=== PATIENT | male | born 1930 | race Hispanic/Latino ===

== ENCOUNTER 2017-02-28 12:01 | Inpatient (IN) | payer MEDICARE, OTHER ==
--- NOTE | 2017-02-28 12:37 | ED PDOC ---
Arrival/HPI - General Chief Complaint: Abdominal Pain Time Seen by Provider: 02/28/17 12:13 Historian: Patient - History of Present Illness Narrative History of Present Illness (Text): 02/28/17 12:33 A 87 year old male presents to the emergency department complaining of a left side inguinal hernia. Patient reports intermittent pain for the past few days radiating to abdomen. Patient notes non-bloody diarrhea but denies any fever, chills, nausea, vomiting, chest pain, shortness of breath or any other complaints. Patient has a scheduled surgery with Jericho Arguello at the end of this month. Time/Duration: < week (few days) Symptom Course: Unchanged, Intermittent Quality: Other Context: Home Past Medical History - Provider Review Nursing Documentation Reviewed: Yes - Past History Past History: Non-Contributing - Infectious Disease Hx of Infectious Diseases: None - Tetanus Immunization Tetanus Immunization: Unknown - Cardiac Hx Hypertension: Yes - Endocrine/Metabolic Hx Hyperthyroidism: Yes - Gastrointestinal Hx Gastroesophageal Reflux: Yes - Genitourinary/Gynecological Hx Prostate Problems: Yes (Enlarged.) - Psychiatric Hx Depression: Yes Hx Emotional Abuse: No Hx Physical Abuse: No Hx Substance Use: No - Surgical History Hx Orthopedic Surgery: Yes (LEFT ANKLE) - Suicidal Assessment Feels Threatened In Home Enviroment: No Family/Social History - Physician Review Nursing Documentation Reviewed: Yes Family/Social History: No Known Family HX Smoking Status: Never Smoked Hx Alcohol Use: No Hx Substance Use: No Allergies/Home Meds Allergies/Adverse Reactions: Allergies No Known Allergies Allergy (Verified 02/28/17 12:14) Home Medications: Home Meds Medication Instructions Recorded Confirmed Unobtainable 02/28/17 02/28/17 Review of Systems - Physician Review All systems were reviewed & negative as marked: Yes - Review of Systems Constitutional: absent: Fevers, Night Sweats Respiratory: absent: SOB Cardiovascular: absent: Chest Pain Gastrointestinal: Abdominal Pain, Diarrhea, Other (inguinal hernia). absent: Nausea, Vomiting Physical Exam Vital Signs Reviewed: Yes Vital Signs Temp Pulse Resp BP Pulse Ox 02/28/17 15:14 97.9 F 84 18 140/80 96 02/28/17 12:11 97.4 F L 74 18 125/84 97 02/28/17 12:02 97.4 F L 74 18 125/84 97 Temperature: Afebrile Blood Pressure: Normal Pulse: Regular Respiratory Rate: Normal Appearance: Positive for: Well-Appearing, Non-Toxic, Comfortable Pain Distress: None Mental Status: Positive for: Alert and Oriented X 3 - Systems Exam Head: Present: Atraumatic, Normocephalic Pupils: Present: PERRL Extroacular Muscles: Present: EOMI Conjunctiva: Present: Normal Mouth: Present: Moist Mucous Membranes Neck: Present: Normal Range of Motion Respiratory/Chest: Present: Clear to Auscultation, Good Air Exchange. No: Respiratory Distress, Accessory Muscle Use Cardiovascular: Present: Regular Rate and Rhythm, Normal S1, S2. No: Murmurs Abdomen: Present: Normal Bowel Sounds, Hernias (Large inguinal hernia, reducible ). No: Tenderness, Distention, Peritoneal Signs Back: Present: Normal Inspection Upper Extremity: Present: Normal Inspection. No: Cyanosis, Edema Lower Extremity: Present: Normal Inspection. No: Edema Neurological: Present: GCS=15, CN II-XII Intact, Speech Normal Skin: Present: Warm, Dry, Normal Color. No: Rashes Psychiatric: Present: Alert, Oriented x 3, Normal Insight, Normal Concentration Medical Decision Making ED Course and Treatment: 02/28/17 12:33 Impression: A 87 year old male with inguinal hernia. Patient notes pain radiating to abdomen and non-bloody diarrhea Plan: -- EKG -- Labs -- Urine culture and Urinalysis -- Reassess and disposition Progress Notes: EKG shows sinus tachycardia at 106 BPM with normal axis, 1st degree AV block, PAC's. Interpreted by me. 02/28/17 12:47 Case discussed with vice president of finance. 02/28/17 15:[address] Schmid, states patient has an incarcerated obstructed inguinal hernia. Report Date : 02/28/2017 15:28:57 PROCEDURE: CT Abdomen and Pelvis without intravenous contrast Dictator : Piyush Faulkner MD IMPRESSION: Left inguinal hernia containing a loop of sigmoid colon with associated obstruction. No evidence of perforation Report Date : 02/28/2017 15:32:45 PROCEDURE: CHEST RADIOGRAPH, 1 VIEW Dictator : Piyush Faulkner MD IMPRESSION: No active disease. - Lab Interpretations Lab Results: 02/28/17 12:48 02/28/17 12:48 Lab Results 02/28/17 12:48: Blood Type A POSITIVE, Antibody Screen Negative, BBK History Checked No verified bt 02/28/17 12:48: Sodium 138, Potassium 2.9 L*, Chloride 98, Carbon Dioxide 27, Anion Gap 16, BUN 37 H, Creatinine 1.8 H, Est GFR ( Amer) 43, Est GFR ( Non-Af Amer) 36, Random Glucose 122 H, Calcium 10.0, Total Bilirubin 1.1, AST 28 , ALT 30, Alkaline Phosphatase 62, Total Protein 7.5, Albumin 4.0, Globulin 3.4 , Albumin/Globulin Ratio 1.2, Lipase 186 02/28/17 12:48: PT 11.2, INR 1.04, APTT 24.5 02/28/17 12:48: WBC 11.4 H, RBC 4.66, Hgb 14.2, Hct 40.2 L, MCV 86.3, MCH 30.5, MCHC 35.3, RDW 12.7, Plt Count 171, MPV 10.9, Gran % 78.2 H, Lymph % (Auto) 9.9 L, Reeves % (Auto) 11.6 H, Eos % (Auto) 0.2 L, Baso % (Auto) 0.1, Gran # 8.89 H, Lymph # 1.1 L, Reeves # 1.3 H, Eos # 0.0, Baso # 0.01 I have reviewed the lab results: Yes - RAD Interpretation Radiology Orders: 02/28/17 13:17 ABDOMEN & PELVIS [ABD & PELVIS PO CONTRAST ONLY] [CT] Stat - Medication Orders Current Medication Orders: Lactated Ringer's (Lactated Ringer's) 1,000 mls @ 125 mls/hr IV .Q8H [facility] Last Admin: 02/28/17 16:30 Dose: 125 mls/hr Metoprolol Tartrate (Lopressor) 50 mg PO BID [facility] Last Admin: 02/28/17 19:25 Dose: 50 mg Discontinued Medications Amlodipine Besylate (Norvasc) 5 mg PO DAILY [facility] Potassium Chloride (Potassium Chloride 10 Meq/100 Ml) 10 meq in 100 mls @ 100 mls/hr IVPB Q2H [facility] Stop: 02/28/17 16:14 Last Admin: 02/28/17 14:38 Dose: 100 mls/hr Sodium Chloride (Sodium Chloride 0.9%) 1,000 mls @ 999 mls/hr IV .Q1H1M STA Stop: 02/28/17 14:17 Last Admin: 02/28/17 14:45 Dose: 999 mls/hr Sodium Chloride (Sodium Chloride 0.9%) 1,000 mls @ 999 mls/hr IV .Q1H1M [facility] Stop: 02/28/17 15:30 Last Admin: 02/28/17 14:45 Dose: 999 mls/hr Iohexol (Omnipaque 240 (50 Ml)) Confirm Administered Dose 50 ml .ROUTE .STK-MED ONE Stop: 02/28/17 13:24 Pneumococcal Polyvalent Vaccine (Pneumovax 23 Vaccine) 0.5 ml IM .ONCE ONE Stop: 02/28/17 19:33 Potassium Chloride (Potassium Chloride Oral Soln) 40 meq PO STAT STA Stop: 02/28/17 13:05 Last Admin: 02/28/17 13:32 Dose: 40 meq - Scribe Statement The provider has reviewed the documentation as recorded by the Roxanaibj carlos Hernandez Provider Scribe Attestation: All medical record entries made by the Roxanaibj carlos were at my direction and personally dictated by me. I have reviewed the chart and agree that the record accurately reflects my personal performance of the history, physical exam, medical decision making, and the department course for this patient. I have also personally directed, reviewed, and agree with the discharge instructions and disposition. Disposition/Present on Arrival - Present on Arrival Any Indicators Present on Arrival: No History of DVT/PE: No History of Uncontrolled Diabetes: No Urinary Catheter: No History of Decub. Ulcer: No History Surgical Site Infection Following: None - Disposition Have Diagnosis and Disposition been Completed?: Yes Diagnosis: Inguinal hernia of left side with obstruction Disposition: HOSPITALIZED Disposition Time: 13:15 Condition: STABLE
[2017-02-28 12:57] LABS: BASO # 0.01 K/mm3 (0.0-2.0); BASO % 0.1 % (0.0-3.0); EOS % 0.2 % (1.5-5.0); GRAN # 8.89 (1.4-6.5); GRAN % 78.2 % (50.0-68.0); HEMOGLOBIN 14.2 gm/dL (14.0-18.0); LYMPH # 1.1 (1.2-3.4); LYMPH % 9.9 % (22.0-35.0); MEAN CELL VOLUME 86.3 fL (80.0-105.0); MEAN CORPUSCULAR HEMOGLOBIN 30.5 pg (25.0-35.0); MEAN CORPUSCULAR HGB CONC 35.3 g/dl (31.0-37.0); MEAN PLATELET VOLUME 10.9 fl (7.0-11.0); MONO # 1.3 (0.1-0.6); MONO % 11.6 % (1.0-6.0); PLATELET COUNT 171 10^3/uL (120.0-450.0); RBC 4.66 10^6/uL (3.5-6.1); RED CELL DISTRIBUTION WIDTH 12.7 % (11.5-14.5); WHITE BLOOD COUNT 11.4 10^3/ul (4.5-11.0)
[2017-02-28 13:01] LABS: ALB/GLOB RATIO 1.2 (1.1-1.8)
[2017-02-28 13:04] LABS: INR 1.04 (0.93-1.08); PARTIAL THROMBOPLASTIN TIME 24.5 Seconds (23.7-30.8); PROTHROMBIN TIME 11.2 Seconds (9.9-11.8)
[2017-02-28] MEDS ORDERED: Potassium Chloride 40 mEq/30 ml LIQ UD PO STA (13:04)
[2017-02-28] MEDS ORDERED: Sodium Chloride 0.9% 1,000 ML IV STA (13:17)
[2017-02-28] MEDS ORDERED: Iohexol 240 (50 ml) ONE (13:23)
--- NOTE | 2017-02-28 13:33 | CP.PCM.HP ---
History of Present Illness - History of Present Illness History of Present Illness: 88M with PMHx of HTN and GERD comes into the ED with left inguinal pain. Pain is sharp radiates toward the abdomen, the worst 8/10 and self resolves. 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 Pt was originally scheduled to have surgery at the end of the month. Diarrhea for 3 days with no appetite. Pt states lost 5lbs over the past week. Denies any current nausea or vomiting. stool has been loose with no blood. Denies fever chills, CP, SOB. 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 Denies current ETOH and tobacco. Use to smoke use quit 29 years ago, smoked 2pk/day x 20 years. former drinker quit 30 years ago. PMHx: HTN GERD PSHx: Left inguinal hernia repair 10years ago. ALL: NKDA Primary care: Dr. Turk Present on Admission - Present on Admission Any Indicators Present on Admission: No Review of Systems - Constitutional Constitutional: As Per HPI - Cardiovascular Cardiovascular: absent: Chest Pain, Chest Pain at Rest, Dyspnea on Exertion - Respiratory Respiratory: absent: Wheezing - Gastrointestinal Gastrointestinal: Loose Stools. absent: Melena, Vomiting Past Patient History - Infectious Disease Hx of Infectious Diseases: None - Tetanus Immunizations Tetanus Immunization: Unknown - Past Medical History & Family History Past Family History: Reviewed and not pertinent - Past Social History Smoking Status: Never Smoked - CARDIAC Hx Hypertension: Yes - ENDOCRINE/METABOLIC Hx Hyperthyroidism: Yes - GASTROINTESTINAL Hx Gastroesophageal Reflux: Yes - GENITOURINARY/GYNECOLOGICAL Hx Prostate Problems: Yes (Enlarged.) - PSYCHIATRIC Hx Depression: Yes Hx Emotional Abuse: No Hx Physical Abuse: No Hx Substance Use: No - SURGICAL HISTORY Hx Orthopedic Surgery: Yes (LEFT ANKLE) Meds Allergies/Adverse Reactions: Allergies Allergy/AdvReac Type Severity Reaction Status Date / Time No Known Allergies Allergy Verified 02/28/17 12:14 Physical Exam - Constitutional Appears: Well, No Acute Distress - Eye Exam Eye Exam: Normal appearance - Respiratory Exam Respiratory Exam: NORMAL BREATHING PATTERN. absent: Accessory Muscle Use, Chest Wall Tenderness - Cardiovascular Exam Cardiovascular Exam: REGULAR RHYTHM, +S1, +S2 - GI/Abdominal Exam GI & Abdominal Exam: Distended, Hernia, Normal Bowel Sounds. absent: Guarding Additional comments: Left inguinal hernia. bowel sounds in hernia. - Exam Exam: NORMAL INSPECTION. absent: Circumcision, Scrotal Swelling External exam: absent: Ecchymosis - Extremities Exam Extremities exam: Positive for: normal inspection Additional comments: bruises left ankle. - Neurological Exam Neurological exam: Alert, Oriented x3 - Psychiatric Exam Psychiatric exam: Normal Affect, Normal Mood - Skin Skin Exam: Normal Color, Warm Results - Vital Signs Recent Vital Signs: Last Vital Signs Temp 97.4 F L 02/28/17 12:11 Pulse 74 02/28/17 12:11 Resp 18 02/28/17 12:11 BP 125/84 02/28/17 12:11 Pulse Ox 97 02/28/17 12:11 - Labs Result Diagrams: 02/28/17 12:48 02/28/17 12:48 Labs: Laboratory Results - last 24 hr 02/28/17 02/28/17 02/28/17 12:48 12:48 12:48 WBC 11.4 H RBC 4.66 Hgb 14.2 Hct 40.2 L MCV 86.3 MCH 30.5 MCHC 35.3 RDW 12.7 Plt Count 171 MPV 10.9 Gran % 78.2 H Lymph % (Auto) 9.9 L Wilkin % (Auto) 11.6 H Eos % (Auto) 0.2 L Baso % (Auto) 0.1 Gran # 8.89 H Lymph # 1.1 L Wilkin # 1.3 H Eos # 0.0 Baso # 0.01 PT 11.2 INR 1.04 APTT 24.5 Sodium 138 Potassium 2.9 L* Chloride 98 Carbon Dioxide 27 Anion Gap 16 BUN 37 H Creatinine 1.8 H Est GFR ( Amer) 43 Est GFR (Non-Af Amer) 36 Random Glucose 122 H Calcium 10.0 Total Bilirubin 1.1 AST 28 ALT 30 Alkaline Phosphatase 62 Total Protein 7.5 Albumin 4.0 Globulin 3.4 Albumin/Globulin Ratio 1.2 Lipase 186 Assessment & Plan - Assessment and Plan (Free Text) Assessment: 88M left inguinal hernia Plan: - await results of CT scan PO contrast - Stool culture - pain control - NPO - IVF - Admit to service Discuss with Dr. Jericho Srivastava PGY1 - Date & Time Date: 02/28/17 Time: 13:30
[2017-02-28] MEDS ORDERED: Sodium Chloride 0.9% 1,000 ML IV SCH (14:30)
--- NOTE | 2017-02-28 14:43 | CP.PCM.CON ---
History of Present Illness - History of Present Illness History of Present Illness: Consult Note- General Surgery 88M w/ PMHx of HTN and GERD comes into the ED with sharp left inguinal pain. Pain radiates towards the abdomen, worst 8/10 and self resolves. 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 Pt was originally scheduled to have surgery at the end of the month. Diarrhea for 5 days with no appetite. Denies blood in stool. Pt states he lost 5lbs over the past week. Denies any current nausea/vomiting, fevers chills, CP, SOB. 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 Denies current ETOH and tobacco. Former smoker quit 29 years ago, smoked 2pk/day x 20 years. 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 Turk Review of Systems - Review of Systems All systems: reviewed and no additional remarkable complaints except - Constitutional Constitutional: As Per HPI, Weight Loss. absent: Fever, Headache - Cardiovascular Cardiovascular: As Per HPI. absent: Chest Pain, Chest Pain at Rest, Radiating Pain - Respiratory Respiratory: absent: Wheezing, Pain on Inspiration - Gastrointestinal Gastrointestinal: Abdominal Pain, Bloating, Change in Bowel Habits, Loose Stools. absent: Fecal Incontinence, Hematemesis, Hematochezia, Melena, Nausea Past Patient History - Infectious Disease Hx of Infectious Diseases: None - Tetanus Immunizations Tetanus Immunization: Unknown - Past Medical History & Family History Past Family History: Reviewed and not pertinent - Past Social History Smoking Status: Never Smoked - CARDIAC Hx Hypertension: Yes - ENDOCRINE/METABOLIC Hx Hyperthyroidism: Yes - GASTROINTESTINAL Hx Gastroesophageal Reflux: Yes - GENITOURINARY/GYNECOLOGICAL Hx Prostate Problems: Yes (Enlarged.) - PSYCHIATRIC Hx Depression: Yes Hx Emotional Abuse: No Hx Physical Abuse: No Hx Substance Use: No - SURGICAL HISTORY Hx Orthopedic Surgery: Yes (LEFT ANKLE) Meds Allergies/Adverse Reactions: Allergies Allergy/AdvReac Type Severity Reaction Status Date / Time No Known Allergies Allergy Verified 02/28/17 12:14 - Medications Medications: Current Medications Potassium Chloride (Potassium Chloride 10 Meq/100 Ml) 10 meq in 100 mls @ 100 mls/hr IVPB Q2H [facility] Stop: 02/28/17 16:14 Last Admin: 02/28/17 13:29 Dose: 100 mls/hr Lactated Ringer's (Lactated Ringer's) 1,000 mls @ 125 mls/hr IV .Q8H [facility] Sodium Chloride (Sodium Chloride 0.9%) 1,000 mls @ 999 mls/hr IV .Q1H1M [facility] Stop: 02/28/17 15:30 Physical Exam - Constitutional Appears: Well, No Acute Distress - Eye Exam Eye Exam: EOMI, Normal appearance - Respiratory Exam Respiratory Exam: Chest Wall Tenderness, NORMAL BREATHING PATTERN. absent: Accessory Muscle Use - Cardiovascular Exam Cardiovascular Exam: REGULAR RHYTHM, +S1, +S2 - GI/Abdominal Exam GI & Abdominal Exam: Distended, Hernia, Normal Bowel Sounds. absent: Bruit, Diminished Bowel Sounds Additional comments: Left inguinal non-reducable hernia. + BS - Exam Exam: NORMAL INSPECTION. absent: Circumcision - Neurological Exam Neurological exam: Alert, Oriented x3 - Psychiatric Exam Psychiatric exam: Normal Mood - Skin Skin Exam: Intact, Normal Color, Warm Results - Vital Signs Recent Vital Signs: Last Vital Signs Temp 97.4 F L 02/28/17 12:11 Pulse 74 02/28/17 12:11 Resp 18 02/28/17 12:11 BP 125/84 02/28/17 12:11 Pulse Ox 97 02/28/17 12:11 - Labs Result Diagrams: 02/28/17 12:48 02/28/17 12:48 Assessment & Plan - Assessment and Plan (Free Text) Assessment: 88M left inguinal hernia Plan: - await results of CT scan w/ PO contrast - f/u stool culture results - pain control - IVF Discussed with Dr. Jericho Srivastava PGY1 - Date & Time Date: 02/28/17 Time: 13:30
--- NOTE | 2017-02-28 14:45 | CP.PCM.CON ---
History of Present Illness - History of Present Illness History of Present Illness: General Surgery - DR. Echavarria 88M with PMHx of HTN and GERD comes into the ED with left inguinal pain. Pain is sharp radiates toward the abdomen, the worst 8/10 and self resolves. 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 Pt was originally scheduled to have surgery at the end of the month for this. Pt has also had Diarrhea for 3 days and no appetite w/ poor PO intake. Pt states he's lost 5lbs over the past week. He denies any current nausea or vomiting, hematochezia, hematuria, fevers /Chills, SOB/Chest pain. 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 Denies current ETOH and tobacco. Use to smoke use quit 29 years ago, smoked 2pk/day x 20 years. former drinker quit 30 years ago. PMHx: HTN GERD PSHx: Left inguinal hernia repair 10years ago. ALL: NKDA Primary care: Dr. Wray Review of Systems - Review of Systems All systems: reviewed and no additional remarkable complaints except (as per HPI ) Past Patient History - Infectious Disease Hx of Infectious Diseases: None - Tetanus Immunizations Tetanus Immunization: Unknown - Past Medical History & Family History Past Family History: Reviewed and not pertinent - Past Social History Smoking Status: Former Smoker - CARDIAC Hx Hypertension: Yes - ENDOCRINE/METABOLIC Hx Hyperthyroidism: Yes - GASTROINTESTINAL Hx Gastroesophageal Reflux: Yes - GENITOURINARY/GYNECOLOGICAL Hx Prostate Problems: Yes (Enlarged.) - PSYCHIATRIC Hx Depression: Yes Hx Emotional Abuse: No Hx Physical Abuse: No Hx Substance Use: No - SURGICAL HISTORY Hx Orthopedic Surgery: Yes (LEFT ANKLE) Meds Allergies/Adverse Reactions: Allergies Allergy/AdvReac Type Severity Reaction Status Date / Time No Known Allergies Allergy Verified 02/28/17 12:14 - Medications Medications: Current Medications Potassium Chloride (Potassium Chloride 10 Meq/100 Ml) 10 meq in 100 mls @ 100 mls/hr IVPB Q2H [facility] Stop: 02/28/17 16:14 Last Admin: 02/28/17 14:38 Dose: 100 mls/hr Lactated Ringer's (Lactated Ringer's) 1,000 mls @ 125 mls/hr IV .Q8H [facility] Sodium Chloride (Sodium Chloride 0.9%) 1,000 mls @ 999 mls/hr IV .Q1H1M [facility] Stop: 02/28/17 15:30 Physical Exam - Constitutional Appears: No Acute Distress - Head Exam Head Exam: ATRAUMATIC, NORMAL INSPECTION, NORMOCEPHALIC - Eye Exam Eye Exam: EOMI, Normal appearance - ENT Exam ENT Exam: Mucous Membranes Dry - Respiratory Exam Respiratory Exam: NORMAL BREATHING PATTERN. absent: Respiratory Distress - Cardiovascular Exam Cardiovascular Exam: REGULAR RHYTHM - GI/Abdominal Exam GI & Abdominal Exam: Distended (mildly), Hernia (Left Inguinal hernia, not- reducible, likely bowel containing; also a small Right Inguinal hernia), Soft, Tenderness (mild ttp to the L inguinal hernia). absent: Firm, Guarding, Rebound , Rigid - Neurological Exam Neurological exam: Alert, Oriented x3 - Psychiatric Exam Psychiatric exam: Normal Affect, Normal Mood - Skin Skin Exam: Dry, Intact Results - Vital Signs Recent Vital Signs: Last Vital Signs Temp 97.4 F L 02/28/17 12:11 Pulse 74 02/28/17 12:11 Resp 18 02/28/17 12:11 BP 125/84 02/28/17 12:11 Pulse Ox 97 02/28/17 12:11 - Labs Result Diagrams: 02/28/17 12:48 02/28/17 12:48 Assessment & Plan - Assessment and Plan (Free Text) Assessment: 87 yo M w/ recurrent Left Inguinal hernia -Admit to medical service, Dr. Wray -F/U CT Abd/pelvis with PO contrast -Stool culture -IVF hydration and K+ repletion -Will F/u Results and plan for poss. hernia repair this admission DW Dr Jericho Thomas PGY3
--- NOTE | 2017-02-28 15:30 | CT ---
PROCEDURE: CT Abdomen and Pelvis without intravenous contrast HISTORY: evaluation of left inguinal hernia COMPARISON: None. TECHNIQUE: Without contrast. Contrast Dose: None Radiation dose: Total exam DLP = 728 mGy-cm. This CT exam was performed using one or more of the following dose reduction techniques: Automated exposure control, adjustment of the mA and/or kV according to patient size, and/or use of iterative reconstruction technique. FINDINGS: LOWER THORAX: Unremarkable. LIVER: Unremarkable. No gross lesion or ductal dilatation. GALLBLADDER AND BILE DUCTS: Unremarkable. PANCREAS: Unremarkable. No gross lesion or ductal dilatation. SPLEEN: Unremarkable. ADRENALS: Unremarkable. No mass. KIDNEYS AND URETERS: Unremarkable. No hydronephrosis. No solid mass. VASCULATURE: Unremarkable. No aortic aneurysm. BOWEL: There is a large left inguinal hernia that contains a loop of the sigmoid colon. There is associated obstruction with dilatation of the proximal colon. The findings are best demonstrated on coronal image 42. There is severe dilatation of the cecum and transverse colon. The cecum measures 8.2 cm in diameter. Fluid levels are also seen. Findings were discussed with Dr. Branch at 3:30 p.m. APPENDIX: Unremarkable. Normal appendix. PERITONEUM: Unremarkable. No free fluid. No free air. LYMPH NODES: Unremarkable. No enlarged lymph nodes. BLADDER: Unremarkable. REPRODUCTIVE: Unremarkable. BONES: No acute fracture. OTHER FINDINGS: None. IMPRESSION: Left inguinal hernia containing a loop of sigmoid colon with associated obstruction. No evidence of perforation
--- NOTE | 2017-02-28 15:34 | RAD ---
PROCEDURE: CHEST RADIOGRAPH, 1 VIEW HISTORY: r/o infiltrate COMPARISON: None available. FINDINGS: LUNGS: Clear. PLEURA: No pneumothorax or pleural fluid seen. CARDIOVASCULAR: Normal. OSSEOUS STRUCTURES: No significant abnormalities. VISUALIZED UPPER ABDOMEN: Normal. OTHER FINDINGS: None. IMPRESSION: No active disease.
[2017-02-28] MEDS: Lactated Ringer's 1,000 ML IV SCH (16:30)
[2017-02-28 19:32] VITALS: BMI 22.4
[2017-02-28] MEDS ORDERED: Pneumococcal 23-Valent Vaccine IM ONE (19:32)
[2017-03-01] MEDS: Lactated Ringer's 1,000 ML IV SCH (01:21)
[2017-03-01 07:21] LABS: BASO # 0.02 K/mm3 (0.0-2.0); BASO % 0.2 % (0.0-3.0); EOS # 0.1 (0.0-0.7); EOS % 1.2 % (1.5-5.0); GRAN # 8.32 (1.4-6.5); GRAN % 72.5 % (50.0-68.0); HEMOGLOBIN 13.1 gm/dL (14.0-18.0); LYMPH % 17.5 % (22.0-35.0); MEAN CELL VOLUME 86.6 fL (80.0-105.0); MEAN CORPUSCULAR HEMOGLOBIN 29.7 pg (25.0-35.0); MEAN CORPUSCULAR HGB CONC 34.3 g/dl (31.0-37.0); MONO % 8.6 % (1.0-6.0); PLATELET COUNT 167 10^3/uL (120.0-450.0); RBC 4.41 10^6/uL (3.5-6.1); RED CELL DISTRIBUTION WIDTH 12.8 % (11.5-14.5); WHITE BLOOD COUNT 11.5 10^3/ul (4.5-11.0)
[2017-03-01] MEDS ORDERED: Potassium Chloride 20 mEq ER Tab PO ONE ×2 (07:30→10:00)
--- NOTE | 2017-03-01 07:53 | CP.PCM.PN ---
Subjective - Date & Time of Evaluation Date of Evaluation: 03/01/17 Time of Evaluation: 07:00 - Subjective Subjective: Consultation Note: (Dictation System not working) 87 y/o male with LIH with several weeks discomfort and increased pain with diarrhea and diminished appetite for several days admitted through the ER yesterday. Also, hypokalemia noted. NO CP, SOB, orthopnea, PND, Syncope,Dizziness, edema. 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 No F,C, C, SP, H, melena, vomiting. PMH: HBP, Abestosis, Pl. Plaques, GERD, Remote Smoker. No SD, CHF, AP, arrhythmia, diabetes, gout strokeor TIA. Meds: pt is unsure. Meds from [facility]. " BP pill" All: NKDA SH: Active. Former Smoker. rare ETOH. FH: non-contributory ROS: 10 point ROS is otherwise unremarkable PE: WD M in NAD. V/S noted. HEENT: No NVD, car. bruit Lungs: clear Cor.: S1S2 Abd.: soft, LIH noted Ext.: no edema Neuro.: alert Skin: W + D Labs noted: K= 2.9, BUN/Cr.= 37/1.8, WBC= 11,500 CXR: NAD. Pl. Plaques noted. ECG: RSR, PVC's, NSSTW changes CT A+P; noted. Incarc. LIH Objective - Vital Signs/Intake and Output Vital Signs (last 24 hours): Temp Pulse Resp BP Pulse Ox 98 F 101 H 20 147/98 H 96 02/28/17 19:05 02/28/17 19:05 02/28/17 19:05 02/28/17 19:25 02/28/17 16:45 Intake and Output: 03/01/17 03/01/17 06:59 18:59 Intake Total 660 Balance 660 - Medications Medications: Current Medications Lactated Ringer's (Lactated Ringer's) 1,000 mls @ 125 mls/hr IV .Q8H [facility] Last Admin: 03/01/17 01:21 Dose: 125 mls/hr Metoprolol Tartrate (Lopressor) 50 mg PO BID [facility] Last Admin: 02/28/17 19:25 Dose: 50 mg - Labs Labs: 03/01/17 06:45 PT 11.2 Seconds (9.9-11.8) 02/28/17 12:48 INR 1.04 (0.93-1.08) 02/28/17 12:48 APTT 24.5 Seconds (23.7-30.8) 02/28/17 12:48 Assessment and Plan - Assessment and Plan (Free Text) Assessment: Abd. Pain, Diarrhea, Wt. Loss Incarcerated LIH Hypokalemia Renal insufficiency, probably acute on chronic HBP Asbestosis/Pleural Plaques GERD Former Smoker Plan: IVF/Replace KCL vigorously prior to surgery. Await AM labs: BUN/Cr., K+, etc Surgical Evaluation/possible LIH repair later today. Clarify home meds Metoprolol Add amlodipine Will follow Mildly increased cardiac risk for planned surgery.
[2017-03-01 08:00] LABS: ALB/GLOB RATIO 1.2 (1.1-1.8); ALBUMIN 3.6 g/dL (3.0-4.8); ALT/SGPT 22 U/L (7-56); AST/SGOT 35 U/L (15-59); BLOOD UREA NITROGEN 28 mg/dL (7-21); CALCIUM 9.3 mg/dL (8.4-10.5); GFR AFRICAN-AMERICAN > 60; GFR NON-AFRICAN AMERICAN 52
[2017-03-01 08:57] LABS: PH,URINE 5.5 (4.7-8.0); URINE APPEARANCE CLEAR (CLEAR); URINE BILIRUBIN NEGATIVE (NEGATIVE); URINE BLOOD NEGATIVE (NEGATIVE); URINE COLOR YELLOW (YELLOW); URINE GLUCOSE (UA) NEGATIVE (NEGATIVE); URINE LEUKOCYTE ESTERASE NEGATIVE Leu/uL (NEGATIVE); URINE NITRATE NEGATIVE (NEGATIVE); URINE PROTEIN 30 mg/dL (<30 mg/dL); URINE UROBILINOGEN 0.2 E.U./dL (<1 E.U./dL)
[2017-03-01 09:08] LABS: URINE BACTERIA TRACE (NEG); URINE EPITHELIAL CELLS 0 - 2 /hpf (0-5); URINE RBC 0 - 2 /hpf (0-2); URINE WBC 0 - 2 /hpf (0-6)
--- NOTE | 2017-03-01 09:23 | CARD ---
APPROVED REPORT EKG Measurement Heart [id number] <Conclusion> Sinus tachycardia APCs NSSTW changes Prolonged QTc Q in 3
--- NOTE | 2017-03-01 09:36 | CARD ---
APPROVED REPORT EKG Measurement Heart [id number] <Conclusion> RSR PVCs NSSTW changes Q in 3
[2017-03-01] MEDS ORDERED: Bupivacaine 0.5% Inj(30mL) ONE (12:16)
[2017-03-01] MEDS ORDERED: Lidocaine 1% Inj (20ml) ONE ×2 (12:17→12:31)
[2017-03-01] MEDS ORDERED: Propofol 10 mg/ml Inj (20 ML) ONE (12:37)
[2017-03-01] MEDS ORDERED: EPINEPHrine 1 mg/ml (1:1000) Inj ONE (12:56)
[2017-03-01] MEDS ORDERED: Lactated Ringer's 1,000 ML IV SCH (13:44)
[2017-03-01 14:20] LABS: CALCIUM 9.3 mg/dL (8.4-10.5)
--- NOTE | 2017-03-01 17:03 | CP.PCM.PCO ---
Physician Communication Note - Physician Communication Note Physician Communication Note: surgery cancelled 2/2 hypotension/jas. cards to eval. will reschedule
[2017-03-02 07:13] LABS: BASO # 0.03 K/mm3 (0.0-2.0); BASO % 0.3 % (0.0-3.0); EOS # 0.2 (0.0-0.7); EOS % 2.3 % (1.5-5.0); GRAN # 7.13 (1.4-6.5); GRAN % 75.7 % (50.0-68.0); HEMOGLOBIN 12.5 gm/dL (14.0-18.0); LYMPH # 1.2 (1.2-3.4); LYMPH % 12.6 % (22.0-35.0); MEAN CELL VOLUME 86.7 fL (80.0-105.0); MEAN CORPUSCULAR HEMOGLOBIN 29.7 pg (25.0-35.0); MEAN CORPUSCULAR HGB CONC 34.2 g/dl (31.0-37.0); MEAN PLATELET VOLUME 11.1 fl (7.0-11.0); MONO # 0.9 (0.1-0.6); MONO % 9.1 % (1.0-6.0); PLATELET COUNT 149 10^3/uL (120.0-450.0); RBC 4.21 10^6/uL (3.5-6.1); RED CELL DISTRIBUTION WIDTH 12.9 % (11.5-14.5); WHITE BLOOD COUNT 9.4 10^3/ul (4.5-11.0)
[2017-03-02 07:20] LABS: ALB/GLOB RATIO 1.3 (1.1-1.8); ALBUMIN 3.3 g/dL (3.0-4.8); ALT/SGPT 24 U/L (7-56); AST/SGOT 29 U/L (15-59); BLOOD UREA NITROGEN 24 mg/dL (7-21); CALCIUM 9.1 mg/dL (8.4-10.5); GFR AFRICAN-AMERICAN > 60; GFR NON-AFRICAN AMERICAN 57
[2017-03-02 08:36] LABS: ALB/GLOB RATIO 1.2 (1.1-1.8); ALBUMIN 3.3 g/dL (3.0-4.8); ALT/SGPT 25 U/L (7-56); AST/SGOT 27 U/L (15-59); BLOOD UREA NITROGEN 24 mg/dL (7-21); CALCIUM 9.1 mg/dL (8.4-10.5); GFR AFRICAN-AMERICAN > 60; GFR NON-AFRICAN AMERICAN 52
[2017-03-02] MEDS ORDERED: Potassium Chloride 20 mEq ER Tab PO ONE ×2 (08:45→13:00)
--- NOTE | 2017-03-02 08:46 | CP.PCM.PN ---
Subjective - Date & Time of Evaluation Date of Evaluation: 03/02/17 Time of Evaluation: 07:00 - Subjective Subjective: Stable on 2R. He feels OK but still diarrhea. Surgery cancelled yesterday B/O slow HR with Sinus jas and JR (no strips available for my review) On tel he has Sinus jas with HR as low as 41. Also K+ down at 2.9 this AM after it was 4.2 yesterday PM. V/S noted PE: Lungs: clear Cor.: S1S2 Abd.: soft Ext.; no edema Neuro.: alert I/O recorded as 200/500 Labs noted: K+= 2.9 (being repeated) ECG 03/01: RSR, APCs, NSSTW changes Objective - Vital Signs/Intake and Output Vital Signs (last 24 hours): Temp Pulse Resp BP Pulse Ox 97.6 F 80 20 136/69 96 03/02/17 06:07 03/02/17 06:07 03/02/17 06:07 03/02/17 06:07 03/02/17 06:07 Intake and Output: 03/02/17 03/02/17 06:59 18:59 Intake Total 120 Output Total 500 Balance -380 - Medications Medications: Current Medications Sodium Chloride (Sodium Chloride 0.9%) 1,000 mls @ 100 mls/hr IV .Q10H LONNIE Potassium Chloride (Potassium Chloride 20 Meq/100 Ml) 20 meq in 100 mls @ 50 mls/hr IVPB Q2H LONNIE Stop: 03/02/17 12:29 Metoprolol Tartrate (Lopressor) 50 mg PO BID LONNIE Last Admin: 03/01/17 10:27 Dose: 50 mg Potassium Chloride (K-Dur 20 Meq Er Tab) 40 meq PO ONCE ONE Stop: 03/02/17 08:46 - Labs Labs: 03/02/17 05:46 03/02/17 05:30 PT 11.2 Seconds (9.9-11.8) 02/28/17 12:48 INR 1.04 (0.93-1.08) 02/28/17 12:48 APTT 24.5 Seconds (23.7-30.8) 02/28/17 12:48 Assessment and Plan - Assessment and Plan (Free Text) Assessment: Abd. Pain, Diarrhea, Wt. Loss Incarcerated LIH Hypokalemia Renal insufficiency, probably acute on chronic HBP Asbestosis/Pleural Plaques GERD Former Smoker Plan: Continue tel. bed. Replace KCL vigorously prior to surgery. Await repeat labs: BUN/Cr., K+, etc Surgical Evaluation/possible LIH repair later today. Hold Metoprolol Will follow Mildly increased cardiac risk for planned surgery.
[2017-03-02] MEDS: Sodium Chloride 0.9% 1,000 ML IV SCH ×2 (08:52→22:24)
--- NOTE | 2017-03-02 10:16 | CARD ---
APPROVED REPORT EKG Measurement Heart [id number] <Conclusion> RSR APC's 1 PVC NSSTW changes Q in 3
--- NOTE | 2017-03-02 10:53 | CP.PCM.PN ---
Subjective - Date & Time of Evaluation Date of Evaluation: 03/02/17 Time of Evaluation: 10:49 - Subjective Subjective: General Surgery - DR. Echavarria Pt S&E. Overnight pt had periodic bradycardia and a few PVCs. He complains of slight abdominal distension and pain in the L inguinal hernia, unchanged from prior. He continues to have diarrhea. No N/V, F/C, SOB/Cp. Objective - Vital Signs/Intake and Output Vital Signs (last 24 hours): Temp Pulse Resp BP Pulse Ox 97.6 F 80 20 136/69 96 03/02/17 06:07 03/02/17 06:07 03/02/17 06:07 03/02/17 06:07 03/02/17 06:07 Intake and Output: 03/02/17 03/02/17 06:59 18:59 Intake Total 120 Output Total 500 Balance -380 - Medications Medications: Current Medications Sodium Chloride (Sodium Chloride 0.9%) 1,000 mls @ 100 mls/hr IV .Q10H LONNIE Last Admin: 03/02/17 08:52 Dose: 100 mls/hr Potassium Chloride (Potassium Chloride 20 Meq/100 Ml) 20 meq in 100 mls @ 50 mls/hr IVPB Q2H LONNIE Stop: 03/02/17 12:29 Last Admin: 03/02/17 08:52 Dose: 50 mls/hr Metoprolol Tartrate (Lopressor) 50 mg PO BID LONNIE Last Admin: 03/01/17 10:27 Dose: 50 mg Potassium Chloride (K-Dur 20 Meq Er Tab) 40 meq PO ONCE ONE Stop: 03/02/17 13:01 - Labs Labs: 03/02/17 05:46 03/02/17 08:10 PT 11.2 Seconds (9.9-11.8) 02/28/17 12:48 INR 1.04 (0.93-1.08) 02/28/17 12:48 APTT 24.5 Seconds (23.7-30.8) 02/28/17 12:48 - Constitutional Appears: No Acute Distress - Head Exam Head Exam: ATRAUMATIC, NORMAL INSPECTION, NORMOCEPHALIC - Eye Exam Eye Exam: Normal appearance - ENT Exam ENT Exam: Mucous Membranes Dry - Respiratory Exam Respiratory Exam: NORMAL BREATHING PATTERN. absent: Respiratory Distress - GI/Abdominal Exam GI & Abdominal Exam: Distended, Soft, Tenderness (mild ttp at hernia), Hernia ( incarcerated LIH). absent: Firm, Guarding, Rigid - Neurological Exam Neurological Exam: Alert, Awake, Oriented x3 - Psychiatric Exam Psychiatric exam: Normal Affect, Normal Mood - Skin Skin Exam: Dry, Intact Assessment and Plan - Assessment and Plan (Free Text) Assessment: 87 yo M w/ incarcerated LIH causing partial colonic obstruction -Surgery cancelled yesterday d/t bradycardia -Continue to hold Metoprolol -Replete K+ and recheck e-lytes this PM -Maintain NPO for now, IVF -Will plan for surgery in near future once more stable from cardiac perspective DW DR Jericho Thomas PGY2
[2017-03-02 16:03] LABS: CALCIUM 9.5 mg/dL (8.4-10.5)
[2017-03-02] MEDS ORDERED: Potassium Phosphate 3 mmol/ml Inj IV ONE (21:42)
[2017-03-02] MEDS ORDERED: Potassium Phosphate 15 MMOLE in Sodium Chloride 0.9% 250 ML IVPB ONE (22:00)
[2017-03-03 06:40] LABS: CALCIUM 9.3 mg/dL (8.4-10.5)
[2017-03-03] MEDS ORDERED: Sodium Chloride 0.9% 1,000 ML IV STA (06:45)
[2017-03-03 06:53] LABS: BASO # 0.02 K/mm3 (0.0-2.0); BASO % 0.2 % (0.0-3.0); EOS # 0.1 (0.0-0.7); EOS % 0.6 % (1.5-5.0); GRAN # 9.54 (1.4-6.5); GRAN % 80.9 % (50.0-68.0); HEMOGLOBIN 14.6 gm/dL (14.0-18.0); LYMPH # 1.3 (1.2-3.4); LYMPH % 10.9 % (22.0-35.0); MEAN CELL VOLUME 87.2 fL (80.0-105.0); MEAN CORPUSCULAR HEMOGLOBIN 30.5 pg (25.0-35.0); MONO # 0.9 (0.1-0.6); MONO % 7.4 % (1.0-6.0); PLATELET COUNT 215 10^3/uL (120.0-450.0); RBC 4.78 10^6/uL (3.5-6.1); WHITE BLOOD COUNT 11.8 10^3/ul (4.5-11.0)
--- NOTE | 2017-03-03 08:08 | CP.PCM.PN ---
Subjective - Date & Time of Evaluation Date of Evaluation: 03/03/17 Time of Evaluation: 07:00 - Subjective Subjective: Stable on 2R. No CP or SOB. Surgery scheduled for later today. V/S noted. RSR (59 - 104 now), APCs, PVCs PE: Lungs: clear Cor.: S1S2 Abd.: soft Ext.; no edema Neuro.: alert Labs noted: k+= 4.0, cR.= 1.5 ECG 03/01: RSR, APCs, NSSTW changes Echo: Good overall EF, Mild AI and MR, mod. TR. See report. Objective - Vital Signs/Intake and Output Vital Signs (last 24 hours): Temp Pulse Resp BP Pulse Ox 97.9 F 59 L 20 137/97 H 98 03/03/17 05:39 03/03/17 05:39 03/03/17 05:39 03/03/17 05:39 03/03/17 05:39 Intake and Output: 03/03/17 03/03/17 06:59 18:59 Intake Total 1295 Output Total 700 Balance 1295 -700 - Medications Medications: Current Medications Sodium Chloride (Sodium Chloride 0.9%) 1,000 mls @ 100 mls/hr IV .Q10H [facility] Last Admin: 03/02/17 22:24 Dose: Not Given Metoprolol Tartrate (Lopressor) 50 mg PO BID [facility] Last Admin: 03/01/17 10:27 Dose: 50 mg - Labs Labs: 03/03/17 06:20 03/03/17 06:20 PT 11.2 Seconds (9.9-11.8) 02/28/17 12:48 INR 1.04 (0.93-1.08) 02/28/17 12:48 APTT 24.5 Seconds (23.7-30.8) 02/28/17 12:48 Assessment and Plan - Assessment and Plan (Free Text) Assessment: Abd. Pain, Diarrhea, Wt. Loss Incarcerated LIH Hypokalemia Renal insufficiency, probably acute on chronic HBP Asbestosis/Pleural Plaques GERD Former Smoker Plan: Continue tel. bed. Replace KCL vigorously prior to surgery. Surgical Evaluation/possible LIH repair later today. Hold Metoprolol Will follow Mildly increased cardiac risk for planned surgery.
--- NOTE | 2017-03-03 08:56 | CARD ---
APPROVED REPORT EXAM: Two-dimensional and M-mode echocardiogram with Doppler and color Doppler. Other Information Quality : FairRhythm : INDICATION Pre-Op BRADYCARDIA, pre-op Evaluation. 2D DIMENSIONS Left Atrium (2D)4.1 (1.6-4.0cm)IVSd1.3 (0.7-1.1cm) LVDd5.0 (3.9-5.9cm)PWd1.2 (0.7-1.1cm) LVDs3.5 (2.5-4.0cm)FS (%) 25.3 % LVEF (%)55.0 (>50%) M-Mode DIMENSIONS Aortic Root3.50 (2.2-3.7cm)Aortic Cusp Exc.1.60 (1.5-2.0cm) Aortic Valve AoV Peak Suythoef749.0cm/[place] GR.11mmHgLVOT Peak Omjiwxrc49.2cm/s LVOT VTI15.90cm Mitral Valve E/A ratio0.0 TDI E/Lateral E'0.0E/Medial E'0.0 Tricuspid Valve TR Peak Fgcgsgrl233wf/sRAP VXKMUPHU79fmJwVG Peak Gr.32mmHg YTBK77esMe LEFT VENTRICLE The left ventricle is normal size. There is mild concentric left ventricular hypertrophy. The left ventricular function is normal. The left ventricular ejection fraction is within the normal range. Possible inferobasalar hypokinesis. RIGHT VENTRICLE The right ventricle is normal size. ATRIA The left atrium is mildly dilated. The right atrium size is normal. AORTIC VALVE The aortic valve is mildly to moderately calcified. There is mild aortic regurgitation. MITRAL VALVE The mitral valve is mildly thickened. Mitral annular calcification is mild to moderate. Mitral regurgitation is mild. TRICUSPID VALVE The tricuspid valve is normal in structure. There is moderate tricuspid regurgitation. There is mild-moderate pulmonary hypertension. PULMONIC VALVE The pulmonic valve is not well visualized. GREAT VESSELS The aortic root is normal in size. PERICARDIAL EFFUSION There is no pericardial effusion. <Conclusion> The left ventricle is normal size. The left ventricular function is normal. There is mild concentric left ventricular hypertrophy. Possible inferobasalar hypokinesis. The aortic valve is mildly to moderately calcified. There is mild aortic regurgitation. Mitral regurgitation is mild. There is moderate tricuspid regurgitation. There is mild-moderate pulmonary hypertension.
[2017-03-03] MEDS: Sodium Chloride 0.9% 1,000 ML IV SCH ×2 (10:54→19:26)
[2017-03-03] MEDS ORDERED: Bupivacaine 0.5% Inj(30mL) ONE ×2 (12:43→13:18)
[2017-03-03] MEDS ORDERED: Lactated Ringer's 1,000 ML IV SCH (14:23)
[2017-03-03] MEDS ORDERED: Morphine 2 mg/ml ISec IVP PRN (14:52)
--- NOTE | 2017-03-03 14:59 | PCM.SURG1 ---
Surgeon's Initial Post Op Note - Surgeon's Notes Surgeon: Dr. Echavarria Pain Management Nurse: Dr. Thomas PGY3, Dr. Srivastava PGY1 Type of Anesthesia: Spinal, Local Pre-Operative Diagnosis: incarcerated left inguinal hernia Operative Findings: see operative note Post-Operative Diagnosis: same Operation Performed: open left inguinal herniorraphy with mesh Specimen/Specimens Removed: mesh plug inserted Estimated Blood Loss: EBL {In ML}: 5 Post-Op Condition: Good Date of Surgery/Procedure: 03/03/17 Time of Surgery/Procedure: 14:00
[2017-03-03 16:36] VITALS: O2SAT 99
--- NOTE | 2017-03-04 07:48 | CP.PCM.PN ---
Subjective - Date & Time of Evaluation Date of Evaluation: 03/04/17 Time of Evaluation: 07:00 - Subjective Subjective: Stable on 2R. S/P LIHR yesterday with spinal anaesthesia. No CP or SOB. He feels well today. V/S noted. RSR PE: Lungs: clear Cor.: S1S2 Abd.: soft Ext.; no edema Neuro.: alert ECG 03/01: RSR, APCs, NSSTW changes Echo: Good overall EF, Mild AI and MR, mod. TR. See report. Objective - Vital Signs/Intake and Output Vital Signs (last 24 hours): Temp Pulse Resp BP Pulse Ox 97.6 F 88 18 125/78 99 03/04/17 05:51 03/04/17 05:51 03/04/17 05:51 03/04/17 05:51 03/04/17 05:51 Intake and Output: 03/04/17 03/04/17 06:59 18:59 Intake Total 220 Output Total 250 Balance -30 - Medications Medications: Current Medications Metoprolol Tartrate (Lopressor) 50 mg PO BID LONNIE Last Admin: 03/01/17 10:27 Dose: 50 mg Morphine Sulfate (Morphine) 2 mg IVP Q4H PRN PRN Reason: Pain, moderate (4-7) - Labs Labs: 03/03/17 06:20 03/03/17 06:20 PT 11.2 Seconds (9.9-11.8) 02/28/17 12:48 INR 1.04 (0.93-1.08) 02/28/17 12:48 APTT 24.5 Seconds (23.7-30.8) 02/28/17 12:48 Assessment and Plan - Assessment and Plan (Free Text) Assessment: Abd. Pain, Diarrhea, Wt. Loss Incarcerated LIH, s/p repaie 03/03/17 Hypokalemia, resolved Renal insufficiency, probably acute on chronic HBP Asbestosis/Pleural Plaques GERD Former Smoker Plan: Await AM labs. Can d/c tel. bed. Hold Metoprolol for now.
[2017-03-04 08:16] LABS: BASO # 0.03 K/mm3 (0.0-2.0); BASO % 0.3 % (0.0-3.0); EOS # 0.2 (0.0-0.7); EOS % 1.9 % (1.5-5.0); GRAN # 8.44 (1.4-6.5); GRAN % 74.8 % (50.0-68.0); HEMOGLOBIN 12.3 gm/dL (14.0-18.0); LYMPH # 1.5 (1.2-3.4); LYMPH % 13.1 % (22.0-35.0); MEAN CELL VOLUME 87.3 fL (80.0-105.0); MEAN CORPUSCULAR HEMOGLOBIN 30.1 pg (25.0-35.0); MEAN CORPUSCULAR HGB CONC 34.5 g/dl (31.0-37.0); MEAN PLATELET VOLUME 10.9 fl (7.0-11.0); MONO # 1.1 (0.1-0.6); MONO % 9.9 % (1.0-6.0); PLATELET COUNT 169 10^3/uL (120.0-450.0); RBC 4.09 10^6/uL (3.5-6.1); RED CELL DISTRIBUTION WIDTH 13.2 % (11.5-14.5); WHITE BLOOD COUNT 11.3 10^3/ul (4.5-11.0)
[2017-03-04 08:22] LABS: ALB/GLOB RATIO 1.1 (1.1-1.8); CALCIUM 8.6 mg/dL (8.4-10.5)
[2017-03-04] MEDS ORDERED: Oxycodone/Acetaminophen 5/325 mg Tab PO PRN (08:40)
[2017-03-04] MEDS ORDERED: Potassium Chloride 20 mEq ER Tab PO ONE (08:42)
--- NOTE | 2017-03-04 08:46 | CP.PCM.PN ---
Subjective - Date & Time of Evaluation Date of Evaluation: 03/04/17 Time of Evaluation: 08:43 - Subjective Subjective: Gen Sx: Dr Echavarria Pt S&E. Doing excellent. Has not been ambulating much due to unstable gait present prior to admission. Reports no pain. Tolerating diet. Has had a bowel movement. Using incentive spirometer. Being seen by cardiology. Objective - Vital Signs/Intake and Output Vital Signs (last 24 hours): Temp Pulse Resp BP Pulse Ox 97.6 F 88 18 125/78 99 03/04/17 05:51 03/04/17 05:51 03/04/17 05:51 03/04/17 05:51 03/04/17 05:51 Intake and Output: 03/04/17 03/04/17 06:59 18:59 Intake Total 220 Output Total 250 Balance -30 - Medications Medications: Current Medications Metoprolol Tartrate (Lopressor) 50 mg PO BID LONNIE Last Admin: 03/01/17 10:27 Dose: 50 mg Oxycodone/Acetaminophen (Percocet 5/325 Mg Tab) 1 tab PO Q4H PRN PRN Reason: Pain, Mild (1-3) Stop: 03/07/17 08:41 Potassium Chloride (K-Dur 20 Meq Er Tab) 40 meq PO ONCE ONE Stop: 03/04/17 08:43 - Labs Labs: 03/04/17 07:30 03/04/17 07:30 PT 11.2 Seconds (9.9-11.8) 02/28/17 12:48 INR 1.04 (0.93-1.08) 02/28/17 12:48 APTT 24.5 Seconds (23.7-30.8) 02/28/17 12:48 - Constitutional Appears: Non-toxic, No Acute Distress - ENT Exam ENT Exam: Normal Exam - Respiratory Exam Respiratory Exam: absent: Accessory Muscle Use, Respiratory Distress - GI/Abdominal Exam GI & Abdominal Exam: Soft. absent: Distended, Guarding, Rigid, Tenderness, Hernia, Mass Additional comments: LIHR incision c/d/i w/ dermabond - Neurological Exam Neurological Exam: Alert, Awake, Oriented x3 - Psychiatric Exam Psychiatric exam: Normal Affect, Normal Mood - Skin Skin Exam: Normal Color, Warm Assessment and Plan - Assessment and Plan (Free Text) Assessment: 87M POD#1 s/p LIHR Plan: Pt doing excellent can be clear for d/c from surgical standpoint pending clearance from cardiology post-op instructions have been provided f/u in 1 week - next week sunday (call to make apt) will d/w Dr Jericho Howell, PGY3
[2017-03-04 12:10] VITALS: BP 126/61; PULSE 75; RESP 20; TEMP 97.4
--- NOTE | 2017-03-08 13:41 | PCM.OP ---
Operative Report - Operative Report Date of Surgery/Procedure: 03/03/17 Surgeon: Dr. Echavarria Anesthesia/Sedation: Marcaine Pre-Operative Diagnosis: Small bowel obstruction Post-Operative Diagnosis: Small bowel obstruction Indication for Surgery: Small bowel obstruction Operative Findings: Patient had an incarcerated hernia with partial obstruction , having diarrhea. Patient had been cancelled once because of the bradycardia. Left inguinal hernia was identified. It had a boggy hernia that could not reduced. Although I tried very hard externally. The bowel was edematous but not ischemic. Hernia sac was enclosed, it was in fact a sliding hernia. Procedure/Operation Description: In the operating room, patient identified by name, number, and procedure laterality, and my eleanor. Patient had been cancelled once because of the bradycardia. In the operating room, patient identified by above. The operation began and the old hernia scar was opened, the external back was identified and inferior to it was a bulging hernia. This was dissected out very nicely and identified using the cord. The cord was seen with a vast and taken aside with a flynn drain. The hernia site was then dissected for high dissection. I could not reduce the hernia even at that point so it was opened. With some difficulty, I reduced it. Thereafter, immediately, there was diarrhea. It was closed with Vicryl, pushed back, and a plug was placed. Very nicely, filling the defect it was sutured in three corners with Vicryl. The hernia defect was then closed with Prolene and mattress stitches to give a good closure. The subcutaneous tissue was closed with Vicryl and a subcuticular stitch was placed. Complications: I could not reduce the hernia even at that point so it was opened. The bowel was edematous but not ischemic. With some difficulty, I reduced it. Discharge & Condition: Patient was taken to recovery in good condition.
== END 2017-03-04 14:22 | disposition home or self-care (01) | DRG 352 ==
LOC: ED 12:01 → ERH 13:18 → 5RNO 15:44 → OBSVTOIN 03-01 13:16 → 2RNO 03-01 15:28
PROVIDERS: ADMIT Internal Medicine; ATTEND Internal Medicine
PROC: 0YQ60ZZ Repair Left Inguinal Region, Open Approach (ICD-10-PCS; principal; 2017-03-03 12:19)
DX: K40.30 Unilateral inguinal hernia, with obstruction, without gangrene, not specified as recurrent (principal); I95.9 Hypotension, unspecified; I10 Essential (primary) hypertension; I49.3 Ventricular premature depolarization; R00.1 Bradycardia, unspecified; K21.9 Gastro-esophageal reflux disease without esophagitis; E87.6 Hypokalemia; N28.9 Disorder of kidney and ureter, unspecified; J61 Pneumoconiosis due to asbestos and other mineral fibers; R19.7 Diarrhea, unspecified; Z87.891 Personal history of nicotine dependence

== ENCOUNTER 2018-08-24 10:57 | Inpatient (IN) | payer MEDICARE, OTHER ==
[2018-08-24 11:00] VITALS: BMI 23.0
--- NOTE | 2018-08-24 11:17 | ED PDOC ---
Arrival/HPI - General Chief Complaint: Shortness Of Breath Time Seen by Provider: 08/24/18 11:04 Historian: Patient - History of Present Illness Narrative History of Present Illness (Text): 08/24/18 11:15 Jose Tilley is an 88 year old male, whose past medical history includes BPH, hypertension, CHF, CAD, COPD, Lyme disease, and chronic kidney disease, who presents to the Emergency department accompanied by relative complaining of shortness of breath. Daughter states patient has been experiencing gradually worsening shortness of breath for the past 2 days. Patient states symptoms are worsened with exertion. Patient denies any fever, chills, nausea, vomiting, diarrhea, urinary symptoms, back pain, neck pain, headache, dizziness, or any other complaints. Time/Duration: < week (2 days) Symptom Onset: Gradual Symptom Course: Unchanged Activities at Onset: Light Context: Home Past Medical History - Provider Review Nursing Documentation Reviewed: Yes - Past History Past History: Non-Contributing - Infectious Disease Hx of Infectious Diseases: None - Tetanus Immunization Tetanus Immunization: Unknown - Cardiac Hx Hypertension: Yes - Pulmonary Hx Chronic Obstructive Pulmonary Disease (COPD): Yes - Neurological Other/Comment: [place] Palsy. h/o Lyme disease - Endocrine/Metabolic Hx Hyperthyroidism: Yes - Hematological/Oncological Hx Blood Transfusions: No Hx Blood Transfusion Reaction: No - Integumentary Other/Comment: age spots r islam, multiple scabs to ble work related, scar and slight deformity to left ankle - Musculoskeletal/Rheumatological Hx Falls: No - Gastrointestinal Hx Gastroesophageal Reflux: Yes - Genitourinary/Gynecological Hx Prostate Problems: Yes (Enlarged.) - Psychiatric Hx Emotional Abuse: No Hx Physical Abuse: No Hx Substance Use: No - Surgical History Other/Comment: left ankle surgery, - Anesthesia Hx Anesthesia: Yes Hx Anesthesia Reactions: No Hx Malignant Hyperthermia: No - Suicidal Assessment Feels Threatened In Home Enviroment: No Family/Social History - Physician Review Nursing Documentation Reviewed: Yes Family/Social History: Unknown Family HX Smoking Status: Never Smoked Hx Alcohol Use: No Hx Substance Use: No Allergies/Home Meds Allergies/Adverse Reactions: Allergies No Known Allergies Allergy (Verified 08/24/18 11:06) Home Medications: Home Meds Medication Instructions Recorded Confirmed RX: Finasteride [Proscar] 1 tab PO DAILY 03/10/18 08/24/18 RX: Simvastatin [Zocor] 1 tab PO DAILY 03/10/18 08/24/18 Review of Systems - Physician Review All systems were reviewed & negative as marked: Yes - Review of Systems Constitutional: Normal. absent: Fevers Eyes: Normal ENT: Normal Respiratory: SOB Gastrointestinal: Normal. absent: Abdominal Pain, Diarrhea, Nausea, Vomiting Genitourinary Male: Normal. absent: Dysuria, Frequency, Hematuria, Urinary Output Changes Musculoskeletal: Normal. absent: Back Pain, Neck Pain Skin: Normal. absent: Rash Neurological: Normal. absent: Headache, Dizziness Endocrine: Normal Hemo/Lymphatic: Normal Psychiatric: Normal Physical Exam Vital Signs Reviewed: Yes Vital Signs Temp Pulse Resp BP Pulse Ox 08/24/18 11:12 97.4 F L 83 28 H 111/54 L 99 Temperature: Afebrile Blood Pressure: Normal Pulse: Regular Respiratory Rate: Normal Appearance: Positive for: Well-Appearing, Non-Toxic, Comfortable Pain Distress: None Mental Status: Positive for: Alert and Oriented X 3 - Systems Exam Head: Present: Atraumatic, Normocephalic Pupils: Present: PERRL Extroacular Muscles: Present: EOMI Conjunctiva: Present: Normal Mouth: Present: Moist Mucous Membranes Neck: Present: Normal Range of Motion Respiratory/Chest: Present: Rales (Rales bilaterally). No: Respiratory Distress, Accessory Muscle Use Cardiovascular: Present: Regular Rate and Rhythm, Normal S1, S2. No: Murmurs Abdomen: No: Tenderness, Distention, Peritoneal Signs Back: Present: Normal Inspection Upper Extremity: Present: Normal Inspection. No: Cyanosis, Edema Lower Extremity: Present: Normal Inspection. No: Edema Neurological: Present: GCS=15, CN II-XII Intact, Speech Normal Skin: Present: Warm, Dry, Normal Color. No: Rashes Psychiatric: Present: Alert, Oriented x 3, Normal Insight, Normal Concentration Medical Decision Making ED Course and Treatment: 08/24/18 11:15 Impression: 88 year old male complaining of shortness of breath x2 days. Plan: -- EKG -- Chest X-ray -- Labs, cardiac enzymes, BNP -- Urinalysis -- Reassess and disposition Prior Visits: Notes and results from previous visits were reviewed. On 03/10/2018, [facility] of breath, bilateral lower extremity swelling, and neck pain. Pt was admitted to the hospital for further evaluation. Progress Notes: Initial EKG, questionable junctional rhythm at 130 bpm. 08/24/18 11:20 Repeat EKG, NSR at [address]/ T wave changes. 08/24/18 11:57 Chest X-ray reviewed, shows calcified pleural plaques. 08/24/18 11:[address] Becker, covering for Dr. Wray, who is aware and agrees with plan. Pt will be admitted to Telemetry for CHF and acute kidney injury - Lab Interpretations I have reviewed the lab results: Yes - RAD Interpretation Access Manager: ED Physician - EKG Interpretation Interpreted by ED Physician: Yes Type: 12 lead EKG - Scribe Statement The provider has reviewed the documentation as recorded by the Roxanaibj carlos Celis Provider Scribe Attestation: All medical record entries made by the Scribe were at my direction and personally dictated by me. I have reviewed the chart and agree that the record accurately reflects my personal performance of the history, physical exam, medical decision making, and the department course for this patient. I have also personally directed, reviewed, and agree with the discharge instructions and disposition. Disposition/Present on Arrival - Present on Arrival Any Indicators Present on Arrival: No History of DVT/PE: No History of Uncontrolled Diabetes: No Urinary Catheter: No History of Decub. Ulcer: No History Surgical Site Infection Following: None - Disposition Have Diagnosis and Disposition been Completed?: Yes Diagnosis: CHF (congestive heart failure), Acute kidney injury Disposition: HOSPITALIZED Disposition Time: 14:00 Patient Problems: Current Active Problems Problem Status Onset Acute kidney injury Acute CHF (congestive heart failure) Acute Condition: STABLE
[2018-08-24 11:36] LABS: BASO # 0.04 K/mm3 (0.0-2.0); BASO % 0.5 % (0.0-3.0); EOS # 0.1 (0.0-0.7); EOS % 1.7 % (1.5-5.0); GRAN # 5.46 (1.4-6.5); GRAN % 64.9 % (50.0-68.0); HEMOGLOBIN 12.9 g/dL (14.0-18.0); LYMPH % 24.3 % (22.0-35.0); MEAN CORPUSCULAR HEMOGLOBIN 29.9 pg (25.0-35.0); MEAN CORPUSCULAR HGB CONC 32.8 g/dl (31.0-37.0); MEAN PLATELET VOLUME 11.2 fl (7.0-11.0); MONO # 0.7 (0.1-0.6); MONO % 8.6 % (1.0-6.0); RBC 4.32 10^6/uL (3.5-6.1); RED CELL DISTRIBUTION WIDTH 12.9 % (11.5-14.5); WHITE BLOOD COUNT 8.4 10^3/uL (4.5-11.0)
[2018-08-24 11:40] LABS: ALB/GLOB RATIO 1.3 (1.1-1.8); ALBUMIN 4.4 g/dL (3.0-4.8); CALCIUM 9.7 mg/dL (8.4-10.5)
[2018-08-24 11:50] LABS: TROPONIN I 0.05 ng/mL
[2018-08-24 12:16] LABS: INR 0.99; PARTIAL THROMBOPLASTIN TIME 27.9 Seconds (25.1-36.5); PROTHROMBIN TIME 11.4 SECONDS (9.4-12.5)
--- NOTE | 2018-08-24 12:41 | RAD ---
Date of service: 08/24/2018 HISTORY: sob COMPARISON: Chest radiograph dated 03/10/2018 FINDINGS: LUNGS: No active pulmonary disease. PLEURA: Calcified bilateral pleural plaques. No pleural effusion or pneumothorax. Left apical pleural thickening. CARDIOVASCULAR: Aortic atherosclerotic calcifications. Cardiomediastinal silhouette stably enlarged OSSEOUS STRUCTURES: Unchanged. VISUALIZED UPPER ABDOMEN: Normal. OTHER FINDINGS: None. IMPRESSION: No active disease.
--- NOTE | 2018-08-24 13:24 | CP.PCM.HP ---
<Brenda Gastelum - Last Filed: 08/24/18 13:33> History of Present Illness - History of Present Illness History of Present Illness: 88 year old male with a past medical history of systolic HF, BPH, CAD, past smoker who presents with 3 days of gradually worsening dyspnea on exertion. Today in the morning he reports he felt short of breath with exertion, leg weakness, and an odd dizzy feeling. He reports the dizziness/lightheadedness is what brought him to get checked in the ED. He denied any fever, chills, cough, nausea, vomiting, diarrhea, dysuria, unilateral weakness and numbness, or truong ges in speech. He reports taking all of his medications as directed. In the ED initial EKG showed a junctional rhythm with a HR in the 130s. Repeat EKG showed NSR. Labs revealed an elevation in the patient's Creatinine compared to his baseline. Otherwise, 12 point ROS was negative. 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 Wray Present on Admission - Present on Admission Any Indicators Present on Admission: No Review of Systems - Review of Systems All systems: reviewed and no additional remarkable complaints except (as per HPI) Past Patient History - Infectious Disease Hx of Infectious Diseases: None - Tetanus Immunizations Tetanus Immunization: Unknown - Past Social History Smoking Status: Never Smoked - CARDIAC Hx Hypertension: Yes - PULMONARY Hx Chronic Obstructive Pulmonary Disease (COPD): Yes - NEUROLOGICAL Other/Comment: [place] Palsy. h/o Lyme disease - ENDOCRINE/METABOLIC Hx Hyperthyroidism: Yes - HEMATOLOGICAL/ONCOLOGICAL Hx Blood Transfusions: No Hx Blood Transfusion Reaction: No - INTEGUMENTARY Other/Comment: age spots r confucianism, multiple scabs to ble work related, scar and slight deformity to left ankle - MUSCULOSKELETAL/RHEUMATOLOGICAL Hx Falls: No - GASTROINTESTINAL Hx Gastroesophageal Reflux: Yes - GENITOURINARY/GYNECOLOGICAL Hx Prostate Problems: Yes (Enlarged.) - PSYCHIATRIC Hx Emotional Abuse: No Hx Physical Abuse: No Hx Substance Use: No - SURGICAL HISTORY Other/Comment: left ankle surgery, - ANESTHESIA Hx Anesthesia: Yes Hx Anesthesia Reactions: No Hx Malignant Hyperthermia: No Meds Allergies/Adverse Reactions: Allergies Allergy/AdvReac Type Severity Reaction Status Date / Time No Known Allergies Allergy Verified 08/24/18 11:06 Physical Exam - Constitutional Appears: Non-toxic, No Acute Distress - Head Exam Head Exam: ATRAUMATIC, NORMOCEPHALIC - Eye Exam Eye Exam: EOMI, Normal appearance - ENT Exam ENT Exam: Mucous Membranes Moist, Normal Oropharynx - Neck Exam Neck exam: Positive for: Normal Inspection (no JVD) - Respiratory Exam Respiratory Exam: Decreased Breath Sounds (in all lung davis) Additional comments: fine crackles in lung base - Cardiovascular Exam Cardiovascular Exam: RRR, +S1, +S2 - GI/Abdominal Exam GI & Abdominal Exam: Normal Bowel Sounds, Soft. absent: Distended, Guarding - Extremities Exam Extremities exam: Positive for: normal inspection Additional comments: negative Tawana's sign, trace lower extremity edema - Back Exam Back exam: NORMAL INSPECTION. absent: CVA tenderness (L), CVA tenderness (R) - Neurological Exam Neurological exam: Alert, CN II-XII Intact, Oriented x3 - Psychiatric Exam Psychiatric exam: Normal Affect, Normal Mood - Skin Skin Exam: Dry, Intact, Normal Color, Warm Results - Vital Signs Recent Vital Signs: Last Vital Signs Temp 97.4 F L 08/24/18 12:56 Pulse 72 08/24/18 12:56 Resp 20 08/24/18 12:56 BP 102/78 08/24/18 12:56 Pulse Ox 97 08/24/18 12:56 - Labs Result Diagrams: 08/24/18 11:20 08/24/18 11:20 Labs: Laboratory Results - last 24 hr 08/24/18 08/24/18 08/24/18 11:20 11:20 11:20 WBC 8.4 RBC 4.32 Hgb 12.9 L Hct 39.3 L MCV 91.0 D MCH 29.9 MCHC 32.8 RDW 12.9 Plt Count 215 MPV 11.2 H Gran % 64.9 Lymph % (Auto) 24.3 [place] % (Auto) 8.6 H Eos % (Auto) 1.7 Baso % (Auto) 0.5 Gran # 5.46 Lymph # (Auto) 2.0 [place] # (Auto) 0.7 H Eos # (Auto) 0.1 Baso # (Auto) 0.04 PT 11.4 INR 0.99 APTT 27.9 Sodium 140 Potassium 4.9 Chloride 106 Carbon Dioxide 23 Anion Gap 16 BUN 59 H Creatinine 2.3 H Est GFR ( Amer) 33 Est GFR (Non-Af Amer) 27 Random Glucose 194 H Calcium 9.7 Magnesium 2.5 H Total Bilirubin 0.5 AST 36 ALT 27 Alkaline Phosphatase 58 Lactate Dehydrogenase 655 Total Creatine Kinase 214 Troponin I 0.05 NT-Pro-B Natriuret Pep 1990 H Total Protein 7.7 Albumin 4.4 Globulin 3.3 Albumin/Globulin Ratio 1.3 Assessment & Plan - Assessment and Plan (Free Text) Assessment: 88 year old male with a past medical history of systolic HF, CAD, BPH, former smoker who presented with 3 days of worsening shortness of breath and today with weakness/dizziness. In the ED patient was found to have an acute on chronic kidney disease, mild CHF exacerbation, and to be in a junctional rhythm with a HR in the 130s that resolved spontaneously. Cardiology and nephrology will be consulted and the patient will be admitted to telemetry. Plan: 1) Atypical chest pain r/o ACS - Cardiac isoenzymes q6h x 3 - Cardiology consulted, Dr. Garnica/Jeronimo 2) Mild CHF exacerbation versus new arrhythmia - BNP around 2,000 - Chest X-ray and lungs not consistent with overt CHF exacerbation; patient's symptoms may be to an underlying arrhythmia - Monitor on telemetry - Strict I/O - Daily weights - HHD, 2 grams of Na - Lasix 20 mg IVP daily - Cardiology consulted - TSH and HgbA1c (blood glucose in ED was 196) 3) TRE on CKD - Holding ACEI - Avoid Nephrotoxins - Nephrology consulted, Dr. Cabrales 4) BPH - Finasteride 5 mg PO daily 5) Dyslipidemia - Continue low dose statin 6) DVT/GI prophylaxis - SCD - Holding protonix as it could be contributory to the patient's TRE 7) Weakness/imbalance - Physical therapy Case was reviewed and discussed with attending physician, Dr. Becker - Date & Time Date: 08/24/18 Time: 13:35 <Chrissy Becker - Last Filed: 08/24/18 14:20> Results - Vital Signs Recent Vital Signs: Last Vital Signs Temp 97.4 F L 08/24/18 12:56 Pulse 72 08/24/18 12:56 Resp 20 12/29/18 12:56 BP 102/78 08/24/18 12:56 Pulse Ox 97 08/24/18 12:56 - Labs Result Diagrams: 08/24/18 11:20 08/24/18 11:20 Labs: Laboratory Results - last 24 hr 08/24/18 08/24/18 08/24/18 11:20 11:20 11:20 WBC 8.4 RBC 4.32 Hgb 12.9 L Hct 39.3 L MCV 91.0 D MCH 29.9 MCHC 32.8 RDW 12.9 Plt Count 215 MPV 11.2 H Gran % 64.9 Lymph % (Auto) 24.3 [place] % (Auto) 8.6 H Eos % (Auto) 1.7 Baso % (Auto) 0.5 Gran # 5.46 Lymph # (Auto) 2.0 [place] # (Auto) 0.7 H Eos # (Auto) 0.1 Baso # (Auto) 0.04 PT 11.4 INR 0.99 APTT 27.9 Sodium 140 Potassium 4.9 Chloride 106 Carbon Dioxide 23 Anion Gap 16 BUN 59 H Creatinine 2.3 H Est GFR ( Amer) 33 Est GFR (Non-Af Amer) 27 Random Glucose 194 H Calcium 9.7 Magnesium 2.5 H Total Bilirubin 0.5 AST 36 ALT 27 Alkaline Phosphatase 58 Lactate Dehydrogenase 655 Total Creatine Kinase 214 Troponin I 0.05 NT-Pro-B Natriuret Pep 1990 H Total Protein 7.7 Albumin 4.4 Globulin 3.3 Albumin/Globulin Ratio 1.3 Attending/Attestation - Attestation I have personally seen and examined this patient.: Yes I have fully participated in the care of the patient.: Yes I have reviewed all pertinent clinical information: Yes Notes (Text): 08/24/18 14:14 88 year old male with past medical history systolic CHF, CAD, and CKD who presents with complaint of shortness of breath for the past few days. He was found to have elevated prbnp and acute on chronic kidney disease; consider acute systolic CHF exacerbation. Continue with iv lasix. Monitor creatinine closely while on diuretics. Cardiology and nephrology evaluation is requested. Agree with holding lisinopril for now. Will repeat labs in AM. Serial cardiac enz ymes are ordered. Chrisys Becker MD Hospitalist.
[2018-08-24] MEDS ORDERED: Pneumococcal 23-Valent Vaccine IM ONE (15:09)
[2018-08-24] MEDS ORDERED: Influenza Vaccine 60 mcg/0.5 mL SYR (4YR UP) IM ONE (15:09)
--- NOTE | 2018-08-24 17:15 | CARD ---
APPROVED REPORT Date of service: 08/24/2018 EKG Measurement Heart [id number] <Conclusion> Sinus rhythm with premature atrial complexes Otherwise normal ECG
--- NOTE | 2018-08-24 17:32 | CARD ---
APPROVED REPORT Date of service: 08/24/2018 EKG Measurement Heart [id number] <Conclusion> Accelerated Junctional rhythm Nonspecific ST abnormality Abnormal ECG
[2018-08-24 19:00] LABS: TROPONIN I 0.06 ng/mL
--- NOTE | 2018-08-24 21:14 | CP.PCM.CON ---
History of Present Illness - History of Present Illness History of Present Illness: 88 yo M w/ pmh of CHF w/ systolic dysfunction, CAD, BPH, presented to ED with 3 days of dyspnea on exertion; nephrology being consulted for acute kidney injury; Patient reports intermittent episodes of dyspnea on exertion that he says usually resolve spontaneously but did not do so this time; he has an active lifestyle, frequently going [place] in [place] but notes lately that he needs 3 days to recuperate after his outings lately; he does report running out of his meds since the past 2 weeks including his diuretic; he has been having some ankle edema; otherwise, he also takes 1 pill of alleve daily for leg pain; he also reports increased urinary urgency lately but denies dysuria; Review of Systems - Constitutional Constitutional: absent: Chills, Fever - EENT Nose/Mouth/Throat: absent: Sore Throat - Cardiovascular Cardiovascular: absent: Chest Pain, Palpitations Additional comments: heart rate noted to be 130's on presentation - Respiratory Respiratory: Cough - Gastrointestinal Gastrointestinal: absent: Diarrhea, Nausea, Vomiting - Genitourinary Additional comments: urinary dribbling - Musculoskeletal Additional comments: b/l lower leg pain - Neurological Neurological: absent: Dizziness Past Patient History - Infectious Disease Hx of Infectious Diseases: None - Tetanus Immunizations Tetanus Immunization: Unknown - Past Medical History & Family History Past Family History: Reviewed and not pertinent - Past Social History Smoking Status: Never Smoked - CARDIAC Hx Hypertension: Yes - PULMONARY Hx Chronic Obstructive Pulmonary Disease (COPD): Yes - NEUROLOGICAL Other/Comment: [place] Palsy. h/o Lyme disease - HEENT Hx HEENT Problems: Yes ([place], reading glasses) Hx Glaucoma: Yes Other/Comment: pt does not use hearing aids - ENDOCRINE/METABOLIC Hx Hyperthyroidism: Yes - HEMATOLOGICAL/ONCOLOGICAL Hx Blood Transfusions: No Hx Blood Transfusion Reaction: No - INTEGUMENTARY Other/Comment: age spots r yazidi, multiple scabs to ble work related, scar and slight deformity to left ankle - MUSCULOSKELETAL/RHEUMATOLOGICAL Hx Falls: No - GASTROINTESTINAL Hx Gastroesophageal Reflux: Yes - GENITOURINARY/GYNECOLOGICAL Hx Prostate Problems: Yes (Enlarged.) - PSYCHIATRIC Hx Emotional Abuse: No Hx Physical Abuse: No Hx Substance Use: No - SURGICAL HISTORY Other/Comment: left ankle surgery, - ANESTHESIA Hx Anesthesia: Yes Hx Anesthesia Reactions: No Hx Malignant Hyperthermia: No Meds Allergies/Adverse Reactions: Allergies Allergy/AdvReac Type Severity Reaction Status Date / Time No Known Allergies Allergy Verified 08/24/18 11:06 - Medications Medications: Current Medications Acetaminophen (Tylenol 325mg Tab) 650 mg PO Q6H PRN PRN Reason: Fever >100.4 F Atorvastatin Calcium (Lipitor) 10 mg PO DAILY [facility] Finasteride (Proscar) 5 mg PO DAILY [facility] Furosemide (Lasix) 20 mg IVP DAILY [facility]ON[facility] Physical Exam - Constitutional Appears: Non-toxic, No Acute Distress - Eye Exam Eye Exam: Normal appearance. absent: Scleral icterus - ENT Exam ENT Exam: Mucous Membranes Moist - Respiratory Exam Respiratory Exam: Clear to Auscultation Bilateral. absent: Rales, Rhonchi, Wheezes, Respiratory Distress - Cardiovascular Exam Cardiovascular Exam: RRR, +S1, +S2. absent: Gallop, Rubs - GI/Abdominal Exam GI & Abdominal Exam: Soft. absent: Distended, Tenderness - Exam Exam: absent: Bladder Distension - Extremities Exam Additional comments: mild lower leg edema b/l - Neurological Exam Neurological exam: Alert, Oriented x3 Additional comments: no resting tremor - Psychiatric Exam Psychiatric exam: Normal Affect, Normal Mood - Skin Skin Exam: Normal Color, Warm Results - Vital Signs Recent Vital Signs: Last Vital Signs Temp 98 F 08/24/18 18:00 Pulse 56 L 08/24/18 18:00 Resp 21 08/24/18 18:00 BP 141/81 08/24/18 18:00 Pulse Ox 99 08/24/18 18:00 - Labs Result Diagrams: 08/25/18 06:45 08/25/18 06:45 Labs: Laboratory Results - last 24 hr 08/24/18 08/24/18 08/24/18 11:20 11:20 11:20 WBC 8.4 RBC 4.32 Hgb 12.9 L Hct 39.3 L MCV 91.0 D MCH 29.9 MCHC 32.8 RDW 12.9 Plt Count 215 MPV 11.2 H Gran % 64.9 Lymph % (Auto) 24.3 [place] % (Auto) 8.6 H Eos % (Auto) 1.7 Baso % (Auto) 0.5 Gran # 5.46 Lymph # (Auto) 2.0 [place] # (Auto) 0.7 H Eos # (Auto) 0.1 Baso # (Auto) 0.04 PT 11.4 INR 0.99 APTT 27.9 Sodium 140 Potassium 4.9 Chloride 106 Carbon Dioxide 23 Anion Gap 16 BUN 59 H Creatinine 2.3 H Est GFR ( Amer) 33 Est GFR (Non-Af Amer) 27 Random Glucose 194 H Calcium 9.7 Magnesium 2.5 H Total Bilirubin 0.5 AST 36 ALT 27 Alkaline Phosphatase 58 Lactate Dehydrogenase 655 Total Creatine Kinase 214 Troponin I 0.05 NT-Pro-B Natriuret Pep 1990 H Total Protein 7.7 Albumin 4.4 Globulin 3.3 Albumin/Globulin Ratio 1.3 TSH 3rd Generation 08/24/18 08/24/18 13:30 17:55 WBC RBC Hgb Hct MCV MCH MCHC RDW Plt Count MPV Gran % Lymph % (Auto) [place] % (Auto) Eos % (Auto) Baso % (Auto) Gran # Lymph # (Auto) [place] # (Auto) Eos # (Auto) Baso # (Auto) PT INR APTT Sodium Potassium Chloride Carbon Dioxide Anion Gap BUN Creatinine Est GFR ( Amer) Est GFR (Non-Af Amer) Random Glucose Calcium Magnesium Total Bilirubin AST ALT Alkaline Phosphatase Lactate Dehydrogenase 533 Total Creatine Kinase 167 Troponin I 0.06 NT-Pro-B Natriuret Pep Total Protein Albumin Globulin Albumin/Globulin Ratio TSH 3rd Generation 1.65 - Imaging and Cardiology Chest x-ray Status: Image reviewed by me Additional comment: lung clear Assessment & Plan (1) Acute kidney injury Assessment and Plan: 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; relatively stable volume status on exam; stable electrolyte status; renal insufficiency likely cardiorenal with CHF/pulm htn on recent echo and extensive vascular disease likely afffecting bilateral renal arteries per imaging; mild proteinuria per UA from last year; -agree with continuing gentle diuresis with lasix IV 20 mg daily; -agree with holding home dose of NEREIDA inhibitor; -checking urine lytes; -checking urine for protein, microalbumin and creatinine; -obtaining renal and bladder US (to assess post-void residual volume given BPH symptoms); -avoid nephrotoxic agents (including NSAIDS, which will disrupt renal autoregulation); Status: Acute (2) CHF (congestive heart failure) Assessment and Plan: With systolic dysfunction and pulm htn; doesn't appear to be having overt CHF exacerbation but will continue diuretics as above; f/u with cardiology regarding B-blockers; Status: Acute
[2018-08-24] MEDS ORDERED: Non Formulary Medication (Simvastatin [Zocor] 1 TAB) PO SCH (22:00)
[2018-08-25 00:48] LABS: TROPONIN I 0.06 ng/mL
[2018-08-25 07:11] LABS: HEMOGLOBIN 11.7 g/dL (14.0-18.0); MEAN CELL VOLUME 90.9 fl (80.0-105.0); MEAN CORPUSCULAR HEMOGLOBIN 29.5 pg (25.0-35.0); MEAN CORPUSCULAR HGB CONC 32.5 g/dl (31.0-37.0); MEAN PLATELET VOLUME 10.4 fl (7.0-11.0); RBC 3.96 10^6/uL (3.5-6.1); RED CELL DISTRIBUTION WIDTH 12.7 % (11.5-14.5); WHITE BLOOD COUNT 7.1 10^3/uL (4.5-11.0)
[2018-08-25 07:32] LABS: CALCIUM 9.7 mg/dL (8.4-10.5)
--- NOTE | 2018-08-25 10:50 | CP.PCM.PN ---
<Brennon Gill - Last Filed: 08/25/18 10:46> Subjective - Date & Time of Evaluation Date of Evaluation: 08/25/18 Time of Evaluation: 08:12 - Subjective Subjective: Brennon Gill Y1 Hospital Progress Note Patient seen and examined at bedside this morning. No acute events reported overnight. HR in the 50s. Will try OOB today. SOB improved today. Offers no complaints today. Objective - Vital Signs/Intake and Output Vital Signs (last 24 hours): Temp Pulse Resp BP Pulse Ox 97.8 F 57 L 19 138/60 98 08/25/18 06:00 08/25/18 06:00 08/25/18 06:00 08/25/18 06:00 08/25/18 06:00 Intake and Output: 08/25/18 08/25/18 06:59 18:59 Intake Total 0 Output Total 0 Balance 0 - Medications Medications: Current Medications Acetaminophen (Tylenol 325mg Tab) 650 mg PO Q6H PRN PRN Reason: Fever >100.4 F Atorvastatin Calcium (Lipitor) 10 mg PO DAILY [facility] [place] Last Admin: 08/25/18 09:31 Dose: 10 mg Finasteride (Proscar) 5 mg PO DAILY [facility] [place] Last Admin: 08/25/18 09:32 Dose: 5 mg Furosemide (Lasix) 20 mg IVP DAILY [facility] [place] - Labs Labs: 08/25/18 06:45 08/25/18 06:45 PT 11.4 SECONDS (9.4-12.5) 08/24/18 11:20 INR 0.99 08/24/18 11:20 APTT 27.9 Seconds (25.1-36.5) 08/24/18 11:20 - Additional Findings Additional findings: - Constitutional Appears: Non-toxic, No Acute Distress - Head Exam Head Exam: ATRAUMATIC, NORMOCEPHALIC - Eye Exam Eye Exam: EOMI, Normal appearance - ENT Exam ENT Exam: Mucous Membranes Moist, Normal Oropharynx - Neck Exam Neck exam: Positive for: Normal Inspection (no JVD) - Respiratory Exam Respiratory Exam: Decreased Breath Sounds (in all lung davis) Additional comments: minimal crackles in lung base - Cardiovascular Exam Cardiovascular Exam: RRR, +S1, +S2 - GI/Abdominal Exam GI & Abdominal Exam: Normal Bowel Sounds, Soft. absent: Distended, Guarding - Extremities Exam Extremities exam: Positive for: normal inspection Additional comments: no pedal edema, no calf tenderness - Back Exam Back exam: NORMAL INSPECTION. absent: CVA tenderness (L), CVA tenderness (R) - Neurological Exam Neurological exam: Alert, CN II-XII Intact, Oriented x3 - Skin Skin Exam: Dry, Intact, Normal Color, Warm Assessment and Plan - Assessment and Plan (Free Text) Assessment: 88 year old male with a past medical history of systolic HF, CAD, BPH, former smoker who presented with 3 days of worsening shortness of breath and today with weakness/dizziness. In the ED patient was found to have an acute on chronic kidney disease, mild CHF exacerbation, and to be in a junctional rhythm with a HR in the 130s that resolved spontaneously. Cardiology and nephrology will be consulted and the patient will be admitted to telemetry. Will follow cardiology recommendations. Plan: Chest pain -troponins x3 are WNL, 0.05, 0.06, 0.06 -EKG showed rate of 79bpm with no ST changes, premature atrial complexes -Cardiology consulted, Dr. Garnica/Jeronimo SOB -likely 2/2 CHF exacerbation vs junctional arrthymia on initial EKG -CXR did not show acute disease -BNP around 2,000 -Strict I/O -Daily weights -Lasix 20 mg IVP daily -Cardiology consulted -A1c WNL, TSH WNL -PT, OOB TRE on CKD -improved today to Cr of 2.2 from 2.3, baseline is 1.5-2 -likely 2/2 cardiorenal with CHF/pulm HTN -hold home ACEI -will monitor -Avoid Nephrotoxins -Nephrology consulted, Dr. Cabrales BPH -Finasteride 5 mg PO daily HLD -Continue low dose statin PPX/Diet -SCD, holding protonix for TRE on CKD -HHD Patient seen and case discussed with attending physician, Dr. Becker <Chrissy Becker - Last Filed: 08/25/18 13:05> Objective - Vital Signs/Intake and Output Vital Signs (last 24 hours): Temp Pulse Resp BP Pulse Ox 98.4 F 94 H 20 141/67 98 08/25/18 12:00 08/25/18 12:00 08/25/18 12:00 08/25/18 12:00 08/25/18 06:00 Intake and Output: 08/25/18 08/25/18 06:59 18:59 Intake Total 0 0 Output Total 0 0 Balance 0 0 - Medications Medications: Current Medications Acetaminophen (Tylenol 325mg Tab) 650 mg PO Q6H PRN PRN Reason: Fever >100.4 F Atorvastatin Calcium (Lipitor) 10 mg PO DAILY [facility] [place] Last Admin: 08/25/18 09:31 Dose: 10 mg Finasteride (Proscar) 5 mg PO DAILY [facility] [place] Last Admin: 08/25/18 09:32 Dose: 5 mg Furosemide (Lasix) 20 mg IVP DAILY [facility] [place] - Labs Labs: 08/25/18 06:45 08/25/18 06:45 PT 11.4 SECONDS (9.4-12.5) 08/24/18 11:20 INR 0.99 08/24/18 11:20 APTT 27.9 Seconds (25.1-36.5) 08/24/18 11:20 Attending/Attestation - Attestation I have personally seen and examined this patient.: Yes I have fully participated in the care of the patient.: Yes I have reviewed all pertinent clinical information, including history, physical exam and plan: Yes Notes (Text): 08/25/18 13:00 88 year old male with past medical history systolic CHF, CAD, and CKD who presented with complaint of shortness of breath for the past few days. He was found to have elevated prbnp and acute on chronic kidney disease. Dyspnea on exertion secondary CHF exacerbation vs secondary to accelerated junction rhythm. Likely the latter given no overt fluid overload on examination. Will hold today's dose of lasix. He reports his dyspnea is improved. Cardiology and nephrology are following. Renal/bladder ultrasound is ordered. Lisinopril is on hold. Will repeat labs in AM. Out of bed to chair is ordered. Chrissy Becker MD Hospitalist.
--- NOTE | 2018-08-25 12:21 | CON ---
DATE OF CONSULTATION: 08/25/2018 REFERRING PHYSICIAN: Dr. Becker REASON FOR CONSULTATION: Dyspnea, edema. HISTORY: This is an 88-year-old man known to us from prior admissions with a history of mitral and tricuspid regurgitation, [id number] pulmonary hypertension and [id number] LV dysfunction, who presented with worsening exertional dyspnea. Upon admission to the emergency room, he was noted be in accelerated junctional rhythm with a rate of 130 beats per minute. He subsequently converted to sinus rhythm. He was also noted to have worsening renal insufficiency. He was admitted for further evaluation. He denied any chest pain. He does have a history of LV dysfunction, longstanding tobacco abuse, and coronary artery disease. FAMILY HISTORY: Both parents from age-related illness. SOCIAL HISTORY: He is a former smoker. He denies alcohol use. MEDICATIONS AT HOME: Proscar, Lasix, Lipitor, Protonix, and Zestril. ALLERGIES: NONE. REVIEW OF SYSTEMS: A 10-point review of systems is otherwise unremarkable. PHYSICAL EXAMINATION: GENERAL: He is a very elderly man who appears comfortable at rest. VITAL SIGNS: His blood pressure is 138/60 with a pulse of 56 and sinus, respirations are 16. He is afebrile. HEENT: Normocephalic, atraumatic. NECK: Supple. No JVD noted. CHEST: Bilateral scattered rhonchi heard. HEART: PMI displaced laterally with a systolic murmur at the lower left sternal border as well as the apex. ABDOMEN: Soft, nontender, with normoactive bowel sounds. EXTREMITIES: No clubbing, cyanosis, or edema. SKIN: Warm and dry. PSYCHIATRIC: Normal mood and affect. NEUROLOGICAL: Alert and oriented x3. No gross motor or sensory deficits noted. DIAGNOSTIC DATA: Three sets cardiac enzymes are negative. Potassium is 5.3. BUN and creatinine are 54 and 2.2. White count 7.1, hemoglobin and hematocrit of 11.7 and 36.0 with a platelet count of 163,000. BNP was 1990. TSH 1.65. Cholesterol 186 with an LDL 108, triglycerides of 135, HDL was 43. Electrocardiogram initially revealed accelerated junctional tachycardia. Followup electrocardiogram reveals sinus rhythm with nonspecific ST-T abnormalities. Chest x-ray reveals mildly enlarged cardiac silhouette with bilateral pleural plaque calcification. No evidence of congestive changes. IMPRESSION: 1. Exertional dyspnea, possibly exacerbated by accelerated junctional rhythm, no clear evidence of overt heart failure on physical examination at the present time. Chronically elevated BNP likely secondary to some degree of pulmonary hypertension and valvular heart disease. 2. Moderate mitral and tricuspid regurgitation. 3. Moderate pulmonary hypertension. 4. Worsening renal insufficiency, possibly exacerbated by his inhibitor use. 5. Rest of the problems as noted. RECOMMENDATIONS: I would not employ aggressive diuresis at the present time. His NEREIDA inhibitor is placed on hold and followup BUN and creatinine will be monitored. Repeat echocardiogram does not appear necessary at the present time unless he has to change his clinical condition. We will continue to follow and make further recommendations as needed. Thank you for this consultation. Arun Griggs MD
--- NOTE | 2018-08-25 16:21 | US ---
Date of service: 08/25/2018 PROCEDURE: Ultrasound of the Kidneys HISTORY: acute renal failure COMPARISON: None available. TECHNIQUE: Sonogram of the kidneys. FINDINGS: RIGHT KIDNEY: Measures: 9.6 x 5.5 x 6.2 cm. 1.5 x 1.0 x 1.2 cm upper pole cyst. Increased echogenicity. Normal in size and contour. No stone, solid mass lesion or hydronephrosis visualized. LEFT KIDNEY: Measures: 10.1 x 4.7 x 5.4 cm. Increased echogenicity. Normal in size and contour. No stone, solid mass lesion or hydronephrosis visualized. OTHER FINDINGS: None. IMPRESSION: Increased cortical echogenicity bilaterally can be seen in the setting of medical renal disease. Right upper pole 1.5 cm cyst. No hydronephrosis or nephrolithiasis.
--- NOTE | 2018-08-25 16:23 | US ---
Date of service: 08/25/2018 PROCEDURE: Ultrasound of the Bladder HISTORY: assess post void residual volume COMPARISON: None available. TECHNIQUE: Sonographic evaluation of the bladder was performed. FINDINGS: Unremarkable without wall thickening or intraluminal debris. No calculus or gross mass lesion. No free fluid in pelvis. Prevoid Volume: 38.5 cc. IMPRESSION: No significant bladder volume.
[2018-08-25 18:09] LABS: URINE APPEARANCE CLEAR (CLEAR); URINE COLOR YELLOW (YELLOW); URINE GLUCOSE (UA) NEGATIVE (NEGATIVE)
[2018-08-25 18:10] LABS: URINE BILIRUBIN NEGATIVE (NEGATIVE); URINE BLOOD NEGATIVE (NEGATIVE); URINE LEUKOCYTE ESTERASE NEGATIVE Leu/uL (NEGATIVE); URINE PROTEIN 100 mg/dL (<30 mg/dL); URINE UROBILINOGEN 0.2 E.U./dL (<1 E.U./dL)
[2018-08-25 18:13] LABS: URINE BACTERIA NEG /hpf; URINE EPITHELIAL CELLS 0 - 2 /hpf (0-5); URINE RBC 0 - 2 /hpf (0-2); URINE WBC 0 - 2 /hpf (0-6)
[2018-08-25] MEDS ORDERED: Sodium Chloride 0.9% 500 ML IV SCH (18:15)
[2018-08-25 20:47] LABS: CREATININE,RANDOM URINE 65 mg/dL; TOTAL PROTEIN,RANDOM URINE 68 mg/L
--- NOTE | 2018-08-25 22:22 | CP.PCM.PN ---
Subjective - Date & Time of Evaluation Date of Evaluation: 08/25/18 Time of Evaluation: 11:00 - Subjective Subjective: 88 yo M w/ pmh of CHF w/ systolic dysfunction, CAD, BPH, presented to ED with 3 days of dyspnea on exertion, TRE; Reports feeling well; no more sob; tolerating diet; Objective - Vital Signs/Intake and Output Vital Signs (last 24 hours): Temp Pulse Resp BP Pulse Ox 98.5 F 63 20 161/93 H 98 08/25/18 17:35 08/25/18 17:50 08/25/18 17:35 08/25/18 17:35 08/25/18 06:00 Intake and Output: 08/25/18 08/26/18 18:59 06:59 Intake Total 0 Output Total 0 Balance 0 - Medications Medications: Current Medications Acetaminophen (Tylenol 325mg Tab) 650 mg PO Q6H PRN PRN Reason: Fever >100.4 F Atorvastatin Calcium (Lipitor) 10 mg PO DAILY [facility] Last Admin: 08/25/18 09:31 Dose: 10 mg Finasteride (Proscar) 5 mg PO DAILY [facility] Last Admin: 08/25/18 09:32 Dose: 5 mg Furosemide (Lasix) 20 mg IVP DAILY [facility] Sodium Chloride (Sodium Chloride 0.9%) 500 mls @ 60 mls/hr IV .Q8H20M [facility] Stop: 08/26/18 02:34 Last Admin: 08/25/18 18:32 Dose: 60 mls/hr - Labs Labs: 08/25/18 06:45 08/25/18 06:45 PT 11.4 SECONDS (9.4-12.5) 08/24/18 11:20 INR 0.99 08/24/18 11:20 APTT 27.9 Seconds (25.1-36.5) 08/24/18 11:20 - Constitutional Appears: Non-toxic, No Acute Distress - Eye Exam Eye Exam: Normal appearance - ENT Exam ENT Exam: Mucous Membranes Moist - Respiratory Exam Respiratory Exam: Clear to Ausculation Bilateral. absent: Respiratory Distress - Cardiovascular Exam Cardiovascular Exam: RRR, +S1, +S2 - GI/Abdominal Exam GI & Abdominal Exam: Soft. absent: Distended, Tenderness - Exam Exam: absent: Bladder Distension - Extremities Exam Additional comments: minimal lower leg edema; - Neurological Exam Neurological Exam: Alert, Awake - Psychiatric Exam Psychiatric exam: Normal Affect, Normal Mood. absent: Agitated - Skin Skin Exam: Warm. 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; etiology is unclear; urine lytes goes against pre-renal etiology; nevertheless, has extensive vascular calcifications and is likely very susceptible to hemodynamic fluctuations; does have significant albuminuria on UA that warrants further workup; renal US images reviewed; has significantly incr eased echogenicity bilaterally that is consistent with underlying CKD; no bladder distention; -holding diuretics for now; -giving 500 cc NS at 60 cc/hr; -avoid nephrotoxic agents (including NSAIDS; patient was taking on daily basis); Status: Acute (2) CHF (congestive heart failure) Assessment & Plan: With systolic dysfunction/pulm htn; currently appears relatively euvolemic by exam/symptoms; NEREIDA inhibitor being held for now; consider B-blockers; Status: Chronic
[2018-08-26 07:11] LABS: HEMOGLOBIN 13.5 g/dL (14.0-18.0); MEAN CELL VOLUME 88.9 fl (80.0-105.0); MEAN CORPUSCULAR HEMOGLOBIN 29.9 pg (25.0-35.0); MEAN CORPUSCULAR HGB CONC 33.6 g/dl (31.0-37.0); MEAN PLATELET VOLUME 10.5 fl (7.0-11.0); RBC 4.52 10^6/uL (3.5-6.1); RED CELL DISTRIBUTION WIDTH 12.5 % (11.5-14.5); WHITE BLOOD COUNT 8.7 10^3/uL (4.5-11.0)
[2018-08-26 07:33] LABS: CALCIUM 9.8 mg/dL (8.4-10.5)
--- NOTE | 2018-08-26 09:27 | PN ---
DATE: 08/26/2018 SUBJECTIVE: The patient is seen sitting in a chair on telemetry. He is comfortable at the present time. Continues to have some exertional dyspnea. His renal function is slowly improving. He denies any chest pain. CURRENT MEDICATIONS: Include Lasix 20 mg IV daily, Lipitor 10 mg daily, Proscar 5 mg daily. OBJECTIVE: GENERAL: He is a very elderly man, appears comfortable at rest. VITAL SIGNS: His blood pressure is 146/80 with pulse of 60 and sinus, occasional PVCs and SVPCs are noted. No further tachyarrhythmias have been documented. HEENT: No JVD. CHEST: Bilateral scattered rhonchi. HEART: PMI displaced laterally with a systolic murmur at lower left sternal border as well as the apex. ABDOMEN: Soft, nontender, normoactive bowel sounds. EXTREMITIES: No edema. DIAGNOSTIC DATA: Potassium 4.9. BUN and creatinine 40 and 1.8. White count 8.7, hematocrit 13.5 and 40.2 with platelet count 192,000. IMPRESSION: 1. Recent worsening exertional dyspnea, possibly related to documented accelerated junctional tachycardia on admission. 2. No overt signs of decompensated congestive heart failure at present. 3. Elevated BNP likely due to chronic valvular heart disease and hypertension. 4. Moderate mitral and tricuspid regurgitation. 5. Moderate pulmonary hypertension. 6. [id number] renal insufficiency, slowly improving. RECOMMENDATIONS: Current management should continue for now. Low-dose beta-otilia therapy will be initiated in attempts to prevent future tachyarrhythmias as well as help with blood pressure control in the setting of left ventricular dysfunction. In general consent needs conservative management appears most reasonable at this time. Observation for a transient bradyarrhythmias given his intermittent episodes of sinus bradycardia would be appropriate. We will continue to follow any further recommendation as appropriate. Arun Griggs MD MTDD
--- NOTE | 2018-08-26 13:21 | PN ---
DATE: 08/26/2018 SUBJECTIVE: This is an 88-year-old white male with history of pulmonary hypertension, chronic congestive heart failure, chronic renal insufficiency stage III. Admitted to the hospital with acute renal insufficiency, history of nonsteroidal anti inflammatory abuse, history of diuretics in the past and NEREIDA inhibitors. The patient was admitted. He has seen by for Renal and Dr. Griggs for Cardiology. The patient is stable. His BUN, creatinine down to 48 and 1.8. His bicarb is 26. His potassium is 4.9. His hemoglobin is 13.5. PHYSICAL EXAMINATION: VITAL SIGNS: He is afebrile. His blood pressure is 147/81. CHEST: Clear to auscultation and percussion. VQ bilaterally. HEART: Regular sinus rhythm. No S3 or murmurs. EXTREMITIES: Without cyanosis, clubbing, or edema. The patient has been held off NEREIDA inhibitors, off diuretics and off nonsteroidal anti-inflammatories. We will repeat CMP and follow his renal function. His ultrasound of bladder did not show any distention of the bladder. His renal ultrasound did show echogenic medical renal disease and vascular calcifications, possible arterial insufficiency. Vital signs are stable. The patient will be followed and discharged shortly without diuretics. Fredis Wray MD
--- NOTE | 2018-08-26 13:46 | CP.PCM.APN ---
Subjective - Date & Time of Evaluation Date of Evaluation: 08/26/18 Time of Evaluation: 11:30 - Subjective Subjective: Pt seen and examined at bedside. States that his breathing is better. Denies chest pain. In no acute distress. Objective - Vital Signs/Intake and Output Vital Signs (last 24 hours): Temp Pulse Resp BP Pulse Ox 97.5 F L 54 L 20 139/69 95 08/26/18 05:42 08/26/18 11:11 08/26/18 05:42 08/26/18 11:11 08/26/18 05:42 Intake and Output: 08/26/18 08/26/18 06:59 18:59 Intake Total 980 Output Total 1000 Balance -20 - Medications Medications: Current Medications Acetaminophen (Tylenol 325mg Tab) 650 mg PO Q6H PRN PRN Reason: Fever >100.4 F Atorvastatin Calcium (Lipitor) 10 mg PO DAILY [facility] Last Admin: 08/26/18 11:11 Dose: 10 mg Carvedilol (Coreg) 3.125 mg PO BID [facility] Last Admin: 08/26/18 11:11 Dose: Not Given Finasteride (Proscar) 5 mg PO DAILY [facility] Last Admin: 08/26/18 11:11 Dose: 5 mg Furosemide (Lasix) 20 mg IVP DAILY [facility] - Labs Labs: 08/26/18 06:30 08/26/18 06:30 PT 11.4 SECONDS (9.4-12.5) 08/24/18 11:20 INR 0.99 08/24/18 11:20 APTT 27.9 Seconds (25.1-36.5) 08/24/18 11:20 - Constitutional Appears: Well, No Acute Distress - Head Exam Head Exam: ATRAUMATIC - Eye Exam Eye Exam: Normal appearance - ENT Exam ENT Exam: Normal Exam - Neck Exam Neck Exam: Full ROM - Respiratory Exam Respiratory Exam: Clear to Ausculation Bilateral, NORMAL BREATHING PATTERN - Cardiovascular Exam Cardiovascular Exam: REGULAR RHYTHM, +S1, +S2 - GI/Abdominal Exam GI & Abdominal Exam: Soft, Normal Bowel Sounds - Rectal Exam Rectal Exam: Deferred - Neurological Exam Neurological Exam: Alert, Awake, Oriented x3 Assessment and Plan - Assessment and Plan (Free Text) Assessment: Pt is an 88 y.o. male with pmhx of BPH, hypertension, CHF, CAD, COPD, Lyme disease, and chronic kidney disease admitted for worsening shortness of breath. He is admitted for worsening dyspnea and acute renal insufficiency. Radiology Results Chest X-Ray 08/24/18 11:16 IMPRESSION: No active disease. Bladder Ultrasound 08/25/18 07:55 IMPRESSION: No significant bladder volume. Renal Ultrasound 08/25/18 07:55 IMPRESSION: Increased cortical echogenicity bilaterally can be seen in the setting of medical renal disease. Right upper pole 1.5 cm cyst. No hydronephrosis or nephrolithiasis. Plan: Started on Coreg per Cardio recs Monitor bun/cr Cardio and renal on consult Meds per MAR Physical therapy recommends TCU TCU eval pending Will continue to follow
--- NOTE | 2018-08-26 18:03 | CP.PCM.PN ---
Subjective - Date & Time of Evaluation Date of Evaluation: 08/26/18 Time of Evaluation: 11:30 - Subjective Subjective: 88 yo M w/ pmh of CHF w/ systolic dysfunction, CAD, BPH, presented to ED with 3 days of dyspnea on exertion, TRE; No shortness of breath lately; tolerating diet; some periods of mild bradycardia; Objective - Vital Signs/Intake and Output Vital Signs (last 24 hours): Temp Pulse Resp BP Pulse Ox 98.7 F 50 L 18 135/66 95 08/26/18 17:58 08/26/18 17:58 08/26/18 17:58 08/26/18 17:58 08/26/18 05:42 Intake and Output: 08/26/18 08/26/18 06:59 18:59 Intake Total 980 Output Total 1000 Balance -20 - Medications Medications: Current Medications Acetaminophen (Tylenol 325mg Tab) 650 mg PO Q6H PRN PRN Reason: Fever >100.4 F Atorvastatin Calcium (Lipitor) 10 mg PO DAILY [facility] Last Admin: 08/26/18 11:11 Dose: 10 mg Carvedilol (Coreg) 3.125 mg PO BID [facility] Last Admin: 08/26/18 17:56 Dose: 3.125 mg Finasteride (Proscar) 5 mg PO DAILY [facility] Last Admin: 08/26/18 11:11 Dose: 5 mg Furosemide (Lasix) 20 mg IVP DAILY [facility] - Labs Labs: 08/26/18 06:30 08/26/18 06:30 PT 11.4 SECONDS (9.4-12.5) 08/24/18 11:20 INR 0.99 08/24/18 11:20 APTT 27.9 Seconds (25.1-36.5) 08/24/18 11:20 - Constitutional Appears: Non-toxic, No Acute Distress - Eye Exam Eye Exam: Normal appearance. absent: Scleral icterus - Respiratory Exam Respiratory Exam: Clear to Ausculation Bilateral. absent: Respiratory Distress - Cardiovascular Exam Cardiovascular Exam: RRR, +S1, +S2. absent: Gallop, Rubs - GI/Abdominal Exam GI & Abdominal Exam: Soft. absent: Distended, Tenderness - Exam Exam: absent: Bladder Distension - Extremities Exam Additional comments: no significant leg edema; - Neurological Exam Neurological Exam: Alert, Awake - Psychiatric Exam Psychiatric exam: Normal Affect. absent: Agitated - Skin Skin Exam: Warm. 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 (baseline eGFR in mid-40's); s/p 500 cc NS overnight; renal func tion improved, hyperkalemia resolved; was taking lasix 20 mg daily for past week before presentation; agree with PMD to hold indefinitely, can restart with every other day dosing if needed; -sending limited serology workup for proteinuric kidney disease (CKD is overall slowly progressive); -avoid nephrotoxic agents (reiterated that alleve should be stopped, tylenol suggested as an alternative if needed); -continuing to hold NEREIDA inhibitor for now (may restart as outpatient for residential anti-htn and anti-proteinuric effect); Status: Acute (2) CHF (congestive heart failure) Assessment & Plan: Euvolemic on exam; cardiology assessment noted, being started on low dose coreg; Status: Chronic
[2018-08-27 00:45] VITALS: TEMP 98.2
[2018-08-27 06:19] VITALS: RESP 14; O2SAT 98
[2018-08-27 09:07] VITALS: BP 136/66
[2018-08-27 09:18] LABS: HEMOGLOBIN 12.6 g/dL (14.0-18.0); MEAN CELL VOLUME 87.8 fl (80.0-105.0); MEAN CORPUSCULAR HEMOGLOBIN 29.6 pg (25.0-35.0); MEAN CORPUSCULAR HGB CONC 33.7 g/dl (31.0-37.0); MEAN PLATELET VOLUME 10.9 fl (7.0-11.0); RBC 4.26 10^6/uL (3.5-6.1); RED CELL DISTRIBUTION WIDTH 12.4 % (11.5-14.5); WHITE BLOOD COUNT 7.1 10^3/uL (4.5-11.0)
[2018-08-27 09:33] LABS: ALB/GLOB RATIO 1.3 (1.1-1.8); ALBUMIN 4.1 g/dL (3.0-4.8); CALCIUM 9.6 mg/dL (8.4-10.5)
[2018-08-27 10:16] VITALS: PULSE 65
--- NOTE | 2018-08-27 10:39 | PN ---
DATE: 08/27/2018 SUBJECTIVE: The patient is seen sitting in chair on telemetry. He states he is comfortable. He has had no further dysrhythmias and remains in sinus rhythm. His current medications include carvedilol 3.125 mg b.i.d., Lipitor 10 mg daily, Proscar and Lasix is currently on hold. OBJECTIVE: GENERAL: He is a very elderly man who appears comfortable at rest. VITAL SIGNS: Blood pressure is 140/72 with a pulse of 60 in sinus, respirations are 16. He is afebrile. Occasional PVCs were noted. HEENT: No JVD. CHEST: Few scattered rhonchi heard. HEART: PMI in normal position with a systolic murmur at the left sternal border and apex. ABDOMEN: Soft with normoactive bowel sounds. EXTREMITIES: No edema. DIAGNOSTIC DATA: Blood work from this morning is pending. IMPRESSION: 1. Recent worsening exertional dyspnea, likely multifactorial, accelerated junctional rhythm with a heart rate of 130 beats per minute, may have been contributory upon admission. 2. No overt signs of decompensated congestive heart failure. 3. Moderate mitral and tricuspid regurgitation. 4. [id number] renal insufficiency. 5. Moderate pulmonary hypertension. RECOMMENDATIONS: Current medications can continue for now. Close outpatient followup is advised and monitoring for potential excessive bradycardia with beta-otilia use should be planned. He has had significant bradycardia in the past. If he has recurrent episodes of tachyarrhythmias, consideration may need to be given to a pacemaker implant to allow for rate control therapy. Avoidance of nonsteroidal antiinflammatory agents is recommended as well. We will be happy to follow as an outpatient as needed. Arun Griggs MD
--- NOTE | 2018-08-27 12:20 | PN ---
DATE: 08/27/2018 SUBJECTIVE: An 88-year-old white male with acute systolic heart failure on chronic systolic diastolic heart failure and pulmonary hypertension, renal insufficiency, acute renal insufficiency on chronic renal insufficiency. We are awaiting today's BUN and creatinine. The patient is well. Vital signs are stable. Case discussed with Dr. Griggs and the patient will be taken off ACEs and ARBs and also nonsteroidal antiinflammatories and diuretics. The patient will be managed with calcium-channel blockers and beta-blockers if necessary. The patient has refused CCU and also is at this point refusing home PT. The patient does have a walker and cane at home. PHYSICAL EXAMINATION: VITAL SIGNS: Stable. Heart rate is 68, temperature is 98.2, blood pressure 136/66. PLAN: To discharge home with close followup and I will particularly followup on his heart rate. Fredis Wray MD
[2018-08-27 15:49] LABS: COMPLEMENT C4 13.7 mg/dL (14.0-44.0)
[2018-08-29 13:02] LABS: ALBUMIN (PEP) 3.9 g/dL (3.8-4.8); ALPHA-1-GLOBULIN (PEP) 0.3 g/dL (0.2-0.3)
== END 2018-08-27 12:35 | disposition home or self-care (01) | DRG 682 ==
LOC: ED 10:57 → ERH 11:56 → 2RNO 13:15
PROVIDERS: ADMIT Internal Medicine; ATTEND Internal Medicine
DX: N17.9 Acute kidney failure, unspecified (principal); I50.23 Acute on chronic systolic (congestive) heart failure; I13.0 Hypertensive heart and chronic kidney disease with heart failure and stage 1 through stage 4 chronic kidney disease, or unspecified chronic kidney disease; N18.3 Chronic kidney disease, stage 3 (moderate); H40.9 Unspecified glaucoma; I08.1 Rheumatic disorders of both mitral and tricuspid valves; I27.20 Pulmonary hypertension, unspecified; I25.10 Atherosclerotic heart disease of native coronary artery without angina pectoris; J44.9 Chronic obstructive pulmonary disease, unspecified; K21.9 Gastro-esophageal reflux disease without esophagitis; N40.1 Benign prostatic hyperplasia with lower urinary tract symptoms; Z79.899 Other long term (current) drug therapy; Z87.891 Personal history of nicotine dependence; G51.0 Bell's palsy; Z87.898 Personal history of other specified conditions; E78.5 Hyperlipidemia, unspecified; R40.2412 Glasgow coma scale score 13-15, at arrival to emergency department; R07.89 Other chest pain